=== PATIENT | male | born 1950 | race Two or more races ===

== ENCOUNTER 2021-11-19 06:50 | Inpatient (IN) | payer OTHER ==
[~2021-11-19] VITALS: Ht 172.7 cm; Wt 85.7 kg
[2021-11-19] VITALS (12 sets, daily range): BP systolic 103–126; BP diastolic 73–83
[~2021-11-19 06:50] MED LIST: AMLO10TA80 PO; INDO50CA99 PO; LINA5TAB PO; METO-539 PO; PRED10TA PO; SILD100T69 PO; VALS1TAB80 PO
[2021-11-19] MEDS ORDERED: ETOMIDATE 2MG/ML 10ML VIAL IV ONE (08:08)
[2021-11-19] MEDS ORDERED: MORPHINE SULFATE 4 MG/ML CPJ (NOT FOR IM USE) IV ONE (09:00)
[2021-11-19] MEDS ORDERED: LORAZEPAM 1MG TABLET PO ONE (09:00)
[2021-11-19] MEDS ORDERED: SODIUM BICARBONATE 8.4% 1 MEQ/ML 50ML SYR IV ONE (09:41)
[2021-11-19] MEDS ORDERED: ADENOSINE 3 MG/ML 2ML VIAL IV ONE (09:41)
[2021-11-19] MEDS ORDERED: EPINEPHRINE 0.1MG/ML (1:10,000) 10ML SYR ONE (09:41)
[2021-11-19 09:49] LABS: HEMOGLOBIN. 9.6 g/dL (14.0-18.0); MEAN CORPUSCULAR HEMOGLOBIN 25.5 pg (28.0-32.0); MEAN CORPUSCULAR VOLUME 77.2 fL (80.0-94.0); MEAN PLATELET VOLUME 8.6 fl (7.4-10.4); PLATELET 364 x1000/uL (130-400); RED BLOOD CELL COUNT 3.76 mill/uL (4.7-6.1); RED CELL DISTRIBUTION WIDTH 19.6 % (11.6-14.6)
[2021-11-19 10:48] LABS: PLATELET ESTIMATE NORMAL
[2021-11-19 10:58] LABS: PROTHROMBIN TIME 11.2 sec (9.6-11.0)
[2021-11-19] MEDS ORDERED: MORPHINE SULFATE 4 MG/ML CPJ (NOT FOR IM USE) IV STA (13:03)
[2021-11-19 13:11] LABS: CHLORIDE 111 mEq/L (98-107)
[2021-11-19] MEDS ORDERED: SODIUM CHLORIDE 0.9% 1,000 ML IV ONE (13:15)
[2021-11-19] MEDS ORDERED: ACETAMINOPHEN 325MG TABLET PO PRN (14:45)
[2021-11-19] MEDS ORDERED: ONDANSETRON HCL 4MG/2ML INJ IV PRN (14:45)
[2021-11-19] MEDS ORDERED: CLONIDINE 0.1MG TABLET PO PRN (14:45)
[2021-11-19] MEDS ORDERED: DIPHENHYDRAMINE 50MG/ML VIAL IV PRN (14:45)
[2021-11-19] MEDS ORDERED: CEFTRIAXONE 1 G PREMIX 50 ML IV SCH (14:45)
[2021-11-19 16:58] LABS: TOTAL IRON BINDING CAPACITY 190 ug/dL (250-450)
[2021-11-19] MEDS ORDERED: NALOXONE HCL 0.4MG/ML VIAL IV PRN (17:45)
[2021-11-19] MEDS: SODIUM CHLORIDE 0.9% 1,000 ML IV SCH (20:30)
[2021-11-19] MEDS ORDERED: PROPOFOL 10MG/ML 100ML 100 ML IV ONE (20:30)
[2021-11-19] MEDS ORDERED: NOREPINEPHRINE 32 MG in DEXT 5% WATER 218 ML IV PRN (21:00)
[2021-11-19] MEDS ORDERED: PHENYLEPHRINE 100 MG in DEXT 5% WATER 240 ML IV PRN (21:00)
[2021-11-19] MEDS ORDERED: FENTANYL CITRATE/PF 2,500 MCG in SODIUM CHLORIDE 0.9% 200 ML IV PRN (21:00)
[2021-11-19] MEDS ORDERED: FENTANYL 2500MCG/250ML PMX 250 ML IV PRN (21:01)
[2021-11-19] MEDS ORDERED: DEXTROSE 50% WATER 50ML SYRINGE IV PRN (22:00)
[2021-11-19 22:11] LABS: BG BASE EXCESS -4.3 mmol/L (-2.0-2.0); BG CARBOXYHEMOGLOBIN 0.3 % (0.5-1.5); BG DEOXYHEMOGLOBIN 0.5 % (0.0-5.0); BG FRACTION INSPIRED OXYGEN 100; BG METHEMOGLOBIN 0.3 % (0.0-1.5); BG OXYGEN SATURATION 99.5 % (92.0-98.5); BG OXYHEMOGLOBIN 98.9 % (94.0-97.0); BG PH 7.449 (7.350-7.450); BG PO2 322.2 mmHg (75.0-100.0); BG SAMPLE SITE RIGHT BRACHIAL; BG TOTAL HEMOGLOBIN 8.5 g/dL (12.0-18.0); BG TOTAL RESPIRATORY RATE 22 b/min; BG VENT MODE VENT - AC
[2021-11-19] MEDS: PROPOFOL 10MG/ML 100ML 100 ML IV PRN ×2 (22:17→23:40)
[2021-11-19] MEDS: PANTOPRAZOLE SODIUM 40 MG/VIAL IV SCH (23:50)
[2021-11-20] VITALS (80 sets, daily range): BP systolic 96–148; BP diastolic 31–98
[2021-11-20] MEDS: BLOOD SUGAR DIAGNOSTIC STRIP TEST SCH ×4 (05:23→20:40)
[2021-11-20] MEDS: PROPOFOL 10MG/ML 100ML 100 ML IV PRN (05:25)
[2021-11-20 06:13] LABS: HEMATOCRIT. 25.8 % (42.0-52.0); HEMOGLOBIN. 8.3 g/dL (14.0-18.0); MEAN CORPUSCULAR VOLUME 78.2 fL (80.0-94.0); MEAN PLATELET VOLUME 8.3 fl (7.4-10.4); PLATELET 272 x1000/uL (130-400); RED CELL DISTRIBUTION WIDTH 18.9 % (11.6-14.6)
[2021-11-20] MEDS: INSULIN LISPRO 100 UNITS/ML SUBCUT SCH ×5 (06:30→20:41)
[2021-11-20 06:31] LABS: CHLORIDE 110 mEq/L (98-107)
[2021-11-20] MEDS: FERROUS SULFATE 325MG TABLET PO SCH ×4 (07:00→17:04)
[2021-11-20 08:32] LABS: BG BASE EXCESS -1.6 mmol/L (-2.0-2.0); BG CARBOXYHEMOGLOBIN 0.3 % (0.5-1.5); BG DEOXYHEMOGLOBIN 2.1 % (0.0-5.0); BG FRACTION INSPIRED OXYGEN 30; BG HCO3 ACT 21.6 mmol/L (22.0-26.0); BG METHEMOGLOBIN 0.2 % (0.0-1.5); BG OXYGEN SATURATION 97.9 % (92.0-98.5); BG OXYHEMOGLOBIN 97.4 % (94.0-97.0); BG PCO2 30.6 mmHg (35.0-45.0); BG PH 7.466 (7.350-7.450); BG PO2 107.5 mmHg (75.0-100.0); BG SAMPLE SITE RIGHT RADIAL; BG TOTAL HEMOGLOBIN 9.6 g/dL (12.0-18.0); BG VENT MODE VENT - AC
[2021-11-20] MEDS: DOCUSATE SODIUM 100MG CAPSULE PO SCH ×2 (09:00→17:05)
[2021-11-20 10:24] LABS: BG BASE EXCESS -2.7 mmol/L (-2.0-2.0); BG CARBOXYHEMOGLOBIN 0.3 % (0.5-1.5); BG DEOXYHEMOGLOBIN 1.8 % (0.0-5.0); BG FRACTION INSPIRED OXYGEN 30; BG HCO3 ACT 20.2 mmol/L (22.0-26.0); BG METHEMOGLOBIN 0.4 % (0.0-1.5); BG OXYGEN SATURATION 98.2 % (92.0-98.5); BG OXYHEMOGLOBIN 97.5 % (94.0-97.0); BG PCO2 28.5 mmHg (35.0-45.0); BG PH 7.468 (7.350-7.450); BG PO2 123.9 mmHg (75.0-100.0); BG SAMPLE SITE RIGHT RADIAL; BG TOTAL HEMOGLOBIN 10.2 g/dL (12.0-18.0); BG VENT MODE VENT - CPAP
[2021-11-20] MEDS: SODIUM CHLORIDE 0.9% 1,000 ML IV SCH ×2 (11:51→17:25)
[2021-11-20 14:15] LABS: PLATELET ESTIMATE NORMAL
[2021-11-20] MEDS: CEFTRIAXONE 1,000 MG in DEXTROSE 5% WATER 50 ML IV SCH (15:21)
[2021-11-20] MEDS ORDERED: CEFTRIAXONE 1,000 MG in DEXTROSE 5% WATER 50 ML IV SCH (17:00)
[2021-11-20] MEDS: PANTOPRAZOLE SODIUM 40 MG/VIAL IV SCH (20:53)
[2021-11-21] VITALS (38 sets, daily range): BP systolic 83–140; BP diastolic 43–98
[2021-11-21] MEDS: SODIUM CHLORIDE 0.9% 1,000 ML IV SCH (04:48)
[2021-11-21 05:17] LABS: MEAN CORPUSCULAR HEMOGLOBIN 25.3 pg (28.0-32.0); MEAN CORPUSCULAR VOLUME 77.3 fL (80.0-94.0); MEAN PLATELET VOLUME 9.2 fl (7.4-10.4); PLATELET 141 x1000/uL (130-400); RED BLOOD CELL COUNT 2.54 mill/uL (4.7-6.1); RED CELL DISTRIBUTION WIDTH 19.6 % (11.6-14.6)
[2021-11-21 05:30] LABS: CHLORIDE 110 mEq/L (98-107)
[2021-11-21] MEDS: ACETAMINOPHEN 325MG TABLET PO PRN (05:43)
[2021-11-21 06:15] LABS: HEMOGLOBIN. 6.4 g/dL (14.0-18.0)
[2021-11-21 06:16] LABS: HEMATOCRIT. 19.7 % (42.0-52.0)
[2021-11-21] MEDS: INSULIN LISPRO 100 UNITS/ML SUBCUT SCH ×4 (06:51→21:00)
[2021-11-21] MEDS: BLOOD SUGAR DIAGNOSTIC STRIP TEST SCH ×4 (06:51→21:00)
[2021-11-21] MEDS: FERROUS SULFATE 325MG TABLET PO SCH ×3 (06:56→16:10)
[2021-11-21 07:04] LABS: HEMATOCRIT 23.5 % (42.0-52.0); HEMOGLOBIN 7.5 g/dL (14.0-18.0); PLATELET 177 x1000/uL (130-400); RED BLOOD CELL COUNT 3.02 mill/uL (4.7-6.1); RED CELL DISTRIBUTION WIDTH 19.4 % (11.6-14.6)
[2021-11-21] MEDS ORDERED: HYDROCODONE/ACETAMINOPHEN 10/325MG TABLET PO PRN (07:30)
[2021-11-21] MEDS: DOCUSATE SODIUM 100MG CAPSULE PO SCH ×2 (08:01→16:10)
[2021-11-21] MEDS: HYDROCODONE/ACETAMINOPHEN 5/325MG TABLET PO PRN (08:03)
[2021-11-21] MEDS: MORPHINE SULFATE 4 MG/ML CPJ (NOT FOR IM USE) IV PRN ×2 (10:57→16:17)
[2021-11-21] MEDS: LACTULOSE 20G/30ML UDC PO SCH ×2 (10:57→16:09)
[2021-11-21] MEDS: CEFTRIAXONE 1,000 MG in DEXTROSE 5% WATER 50 ML IV SCH (14:17)
[2021-11-21 17:05] LABS: PLATELET ESTIMATE NORMAL
[2021-11-21] MEDS ORDERED: EPOETIN ALFA 10000UNITS/ML VIAL SUBCUT NR (21:00)
[2021-11-21] MEDS: PANTOPRAZOLE SODIUM 40 MG/VIAL IV SCH (22:04)
[2021-11-22] VITALS (13 sets, daily range): BP systolic 81–166; BP diastolic 45–109
[2021-11-22 05:21] LABS: HEMATOCRIT. 25.3 % (42.0-52.0); HEMOGLOBIN. 8.3 g/dL (14.0-18.0); MEAN CORPUSCULAR HEMOGLOBIN 25.4 pg (28.0-32.0); MEAN CORPUSCULAR VOLUME 77.5 fL (80.0-94.0); MEAN PLATELET VOLUME 9.4 fl (7.4-10.4); PLATELET 186 x1000/uL (130-400); RED BLOOD CELL COUNT 3.26 mill/uL (4.7-6.1); RED CELL DISTRIBUTION WIDTH 20.1 % (11.6-14.6)
[2021-11-22 06:30] LABS: PHOSPHORUS 3.4 mg/dL (2.5-4.9)
[2021-11-22] MEDS: INSULIN LISPRO 100 UNITS/ML SUBCUT SCH ×4 (08:00→21:00)
[2021-11-22] MEDS: BLOOD SUGAR DIAGNOSTIC STRIP TEST SCH ×4 (08:16→21:00)
[2021-11-22] MEDS: LACTULOSE 20G/30ML UDC PO SCH ×2 (08:16→16:10)
[2021-11-22] MEDS: DOCUSATE SODIUM 100MG CAPSULE PO SCH ×2 (08:16→17:52)
[2021-11-22] MEDS: FERROUS SULFATE 325MG TABLET PO SCH ×3 (08:16→17:51)
[2021-11-22] MEDS: SODIUM CHLORIDE 0.9% 1,000 ML IV SCH (08:17)
[2021-11-22] MEDS: CEFTRIAXONE 1,000 MG in DEXTROSE 5% WATER 50 ML IV SCH (14:00)
[2021-11-22 14:06] LABS: T4 FREE 1.68 ng/dL (0.76-1.46)
[2021-11-22] MEDS: HYDROCODONE/ACETAMINOPHEN 5/325MG TABLET PO PRN (16:11)
[2021-11-22] MEDS ORDERED: NA PHOS,M-B/NA PHOS,DI-BA ENEMA 118ML PR NR (18:00)
[2021-11-22] MEDS: PANTOPRAZOLE SODIUM 40 MG/VIAL IV SCH (21:00)
[2021-11-22 21:03] LABS: PLATELET ESTIMATE NORMAL
[2021-11-23] VITALS (62 sets, daily range): BP systolic 80–175; BP diastolic 39–108
[2021-11-23] MEDS: SODIUM CHLORIDE 0.9% 1,000 ML IV SCH (00:58)
[2021-11-23] MEDS: ATROPINE SULFATE 1MG/ML VIAL IV PRN ×2 (01:57→02:39)
[2021-11-23 03:25] LABS: BG DEOXYHEMOGLOBIN 8.7 % (0.0-5.0); BG FRACTION INSPIRED OXYGEN 21; BG HCO3 ACT 9.2 mmol/L (22.0-26.0); BG METHEMOGLOBIN 0.3 % (0.0-1.5); BG OXYGEN SATURATION 91.3 % (92.0-98.5); BG PCO2 15.7 mmHg (35.0-45.0); BG PH 7.384 (7.350-7.450); BG PO2 65.2 mmHg (75.0-100.0); BG SAMPLE SITE RIGHT BRACHIAL; BG VENT MODE ROOM AIR
[2021-11-23] MEDS ORDERED: SODIUM CHLORIDE 0.9% 500 ML IV ONE (04:15)
[2021-11-23] MEDS: DOPAMINE 400MG/250ML PREMIX 250 ML IV PRN ×2 (04:30→13:54)
[2021-11-23 06:26] LABS: HEMATOCRIT. 26.9 % (42.0-52.0); HEMOGLOBIN. 8.5 g/dL (14.0-18.0); MEAN CORPUSCULAR HEMOGLOBIN 25.1 pg (28.0-32.0); MEAN CORPUSCULAR VOLUME 79.5 fL (80.0-94.0); MEAN PLATELET VOLUME 9.6 fl (7.4-10.4); PLATELET 218 x1000/uL (130-400); RED BLOOD CELL COUNT 3.38 mill/uL (4.7-6.1); RED CELL DISTRIBUTION WIDTH 19.6 % (11.6-14.6)
[2021-11-23 06:27] LABS: BG BASE EXCESS -19.6 mmol/L (-2.0-2.0); BG CARBOXYHEMOGLOBIN 0.3 % (0.5-1.5); BG DEOXYHEMOGLOBIN 2.5 % (0.0-5.0); BG FRACTION INSPIRED OXYGEN 100; BG HCO3 ACT 6.8 mmol/L (22.0-26.0); BG METHEMOGLOBIN 0.2 % (0.0-1.5); BG OXYGEN SATURATION 97.5 % (92.0-98.5); BG PCO2 18.6 mmHg (35.0-45.0); BG PH 7.181 (7.350-7.450); BG PO2 117.3 mmHg (75.0-100.0); BG SAMPLE SITE RIGHT BRACHIAL; BG TOTAL HEMOGLOBIN 9.8 g/dL (12.0-18.0); BG VENT MODE MASK - NRB
[2021-11-23 06:45] LABS: PHOSPHORUS 5.9 mg/dL (2.5-4.9)
[2021-11-23 07:01] LABS: INR 1.4; PROTHROMBIN TIME 14.9 sec (9.6-11.0)
[2021-11-23] MEDS ORDERED: CALCIUM CHLORIDE 1GM/10ML SYR IV NR (07:30)
[2021-11-23] MEDS ORDERED: INSULIN REGULAR (HUMULIN R) 300UNITS/3ML VIAL IV NR (07:30)
[2021-11-23] MEDS ORDERED: DEXTROSE 50% WATER 50ML SYRINGE IV NR (07:30)
[2021-11-23] MEDS ORDERED: SODIUM BICARBONATE 8.4% 1 MEQ/ML 50ML SYR IV NR ×2 (07:30→09:45)
[2021-11-23] MEDS ORDERED: LIDOCAINE HCL 1% 10 MG/ML 10ML VIAL ONE ×3 (07:30→09:42)
[2021-11-23] MEDS: BLOOD SUGAR DIAGNOSTIC STRIP TEST SCH ×4 (07:37→23:19)
[2021-11-23] MEDS ORDERED: ETOMIDATE 2MG/ML 10ML VIAL IV ONE (07:49)
[2021-11-23] MEDS ORDERED: SODIUM CHLORIDE 0.9% 10ML VIAL ONE (07:49)
[2021-11-23] MEDS ORDERED: VECURONIUM BROMIDE 10 MG/VIAL IV ONE (07:49)
[2021-11-23] MEDS: FERROUS SULFATE 325MG TABLET PO SCH ×3 (08:20→17:40)
[2021-11-23] MEDS: INSULIN LISPRO 100 UNITS/ML SUBCUT SCH ×4 (08:20→23:22)
[2021-11-23] MEDS: DOCUSATE SODIUM 100MG CAPSULE PO SCH ×2 (09:00→16:34)
[2021-11-23] MEDS: LACTULOSE 20G/30ML UDC PO SCH ×2 (09:00→16:34)
[2021-11-23 09:02] LABS: PLATELET ESTIMATE NORMAL
[2021-11-23] MEDS: SODIUM BICARBONATE 150 MEQ in DEXTROSE 5% WATER 1,000 ML IV SCH (09:39)
[2021-11-23] MEDS: FENTANYL 2500MCG/250ML PMX 250 ML IV PRN (09:40)
[2021-11-23 10:10] LABS: BG BASE EXCESS -17.8 mmol/L (-2.0-2.0); BG CARBOXYHEMOGLOBIN 0.2 % (0.5-1.5); BG DEOXYHEMOGLOBIN 4.4 % (0.0-5.0); BG FRACTION INSPIRED OXYGEN 100; BG HCO3 ACT 10.9 mmol/L (22.0-26.0); BG METHEMOGLOBIN 1.3 % (0.0-1.5); BG OXYGEN SATURATION 95.5 % (92.0-98.5); BG OXYHEMOGLOBIN 94.1 % (94.0-97.0); BG PCO2 36.7 mmHg (35.0-45.0); BG PH 7.092 (7.350-7.450); BG PO2 114.1 mmHg (75.0-100.0); BG SAMPLE SITE RIGHT RADIAL; BG TOTAL HEMOGLOBIN 10.4 g/dL (12.0-18.0); BG VENT MODE VENT - AC/VC
[2021-11-23] MEDS: MIDAZOLAM 100MG/100ML PMX 100 ML IV PRN (11:00)
[2021-11-23] MEDS ORDERED: ALBUMIN HUMAN 12.5GM/50ML (25%) IV NR (12:15)
[2021-11-23] MEDS ORDERED: ALBUMIN HUMAN 25GM/100ML (25%) IV NR (12:30)
[2021-11-23] MEDS: CEFTRIAXONE 1,000 MG in DEXTROSE 5% WATER 50 ML IV SCH (13:06)
[2021-11-23 13:56] LABS: HEPATITIS B SURFACE ANTIGEN NEGATIVE
[2021-11-23 15:10] LABS: BG BASE EXCESS 2.5 mmol/L (-2.0-2.0); BG DEOXYHEMOGLOBIN 0.3 % (0.0-5.0); BG FRACTION INSPIRED OXYGEN 100; BG METHEMOGLOBIN 0.3 % (0.0-1.5); BG OXYGEN SATURATION 99.7 % (92.0-98.5); BG OXYHEMOGLOBIN 99.4 % (94.0-97.0); BG PCO2 25.7 mmHg (35.0-45.0); BG PH 7.588 (7.350-7.450); BG PO2 524.7 mmHg (75.0-100.0); BG SAMPLE SITE RIGHT BRACHIAL; BG VENT MODE VENT - AC
[2021-11-23] MEDS: PHENYLEPHRINE 50 MG in DEXT 5% WATER 245 ML IV PRN ×2 (17:38→22:48)
[2021-11-23] MEDS: PANTOPRAZOLE SODIUM 40 MG/VIAL IV SCH (21:11)
[2021-11-24] VITALS (73 sets, daily range): BP systolic 93–146; BP diastolic 63–98
[2021-11-24] MEDS: SODIUM BICARBONATE 150 MEQ in DEXTROSE 5% WATER 1,000 ML IV SCH (01:12)
[2021-11-24] MEDS: BLOOD SUGAR DIAGNOSTIC STRIP TEST SCH ×4 (05:32→23:31)
[2021-11-24] MEDS: INSULIN LISPRO 100 UNITS/ML SUBCUT SCH ×4 (05:32→23:32)
[2021-11-24] MEDS: PHENYLEPHRINE 50 MG in DEXT 5% WATER 245 ML IV PRN (05:33)
[2021-11-24 06:15] LABS: HEMATOCRIT. 25.3 % (42.0-52.0); HEMOGLOBIN. 8.4 g/dL (14.0-18.0); MEAN CORPUSCULAR HEMOGLOBIN 25.3 pg (28.0-32.0); MEAN CORPUSCULAR VOLUME 76.4 fL (80.0-94.0); MEAN PLATELET VOLUME 10.2 fl (7.4-10.4); PLATELET 199 x1000/uL (130-400); RED BLOOD CELL COUNT 3.32 mill/uL (4.7-6.1); RED CELL DISTRIBUTION WIDTH 20.3 % (11.6-14.6)
[2021-11-24 06:24] LABS: INR 1.8; PROTHROMBIN TIME 18.7 sec (9.6-11.0)
[2021-11-24 07:19] LABS: PHOSPHORUS 4.2 mg/dL (2.5-4.9)
[2021-11-24] MEDS: FERROUS SULFATE 325MG TABLET PO SCH ×3 (08:20→17:28)
[2021-11-24 08:25] LABS: BG BASE EXCESS 4.5 mmol/L (-2.0-2.0); BG CARBOXYHEMOGLOBIN 0.1 % (0.5-1.5); BG DEOXYHEMOGLOBIN 7.1 % (0.0-5.0); BG FRACTION INSPIRED OXYGEN 40; BG HCO3 ACT 27.8 mmol/L (22.0-26.0); BG METHEMOGLOBIN 0.3 % (0.0-1.5); BG OXYGEN SATURATION 92.9 % (92.0-98.5); BG OXYHEMOGLOBIN 92.5 % (94.0-97.0); BG PCO2 36.6 mmHg (35.0-45.0); BG PH 7.499 (7.350-7.450); BG PO2 67.1 mmHg (75.0-100.0); BG SAMPLE SITE RIGHT RADIAL; BG TOTAL HEMOGLOBIN 10.7 g/dL (12.0-18.0); BG VENT MODE VENT - AC
[2021-11-24] MEDS: DOCUSATE SODIUM 100MG CAPSULE PO SCH ×2 (09:00→17:29)
[2021-11-24] MEDS: LACTULOSE 20G/30ML UDC PO SCH ×2 (09:00→17:29)
[2021-11-24] MEDS: DEXT 5%/0.9% NACL 1,000 ML IV SCH (11:02)
[2021-11-24] MEDS: CEFTRIAXONE 1,000 MG in DEXTROSE 5% WATER 50 ML IV SCH (15:18)
[2021-11-24 17:13] LABS: NUCLEATED RED BLOOD CELLS 2 /100 WBC; PLATELET ESTIMATE NORMAL
[2021-11-24 20:07] LABS: HEMATOCRIT 22.6 % (42.0-52.0); HEMOGLOBIN 7.6 g/dL (14.0-18.0)
[2021-11-24 20:26] LABS: INR 1.7; PROTHROMBIN TIME 17.6 sec (9.6-11.0)
[2021-11-24] MEDS: IPRATROPIUM/ALBUTEROL 0.5-3(2.5)MG/3ML NEB HHN PRN (20:43)
[2021-11-24] MEDS: PANTOPRAZOLE SODIUM 40 MG/VIAL IV SCH (21:24)
[2021-11-25] VITALS (47 sets, daily range): BP systolic 115–175; BP diastolic 70–127
[2021-11-25] MEDS: DEXT 5%/0.9% NACL 1,000 ML IV SCH (00:03)
[2021-11-25] MEDS: MIDAZOLAM 100MG/100ML PMX 100 ML IV PRN (03:59)
[2021-11-25] MEDS: INSULIN LISPRO 100 UNITS/ML SUBCUT SCH ×3 (06:00→18:00)
[2021-11-25 06:42] LABS: HEMATOCRIT. 21.7 % (42.0-52.0); HEMOGLOBIN. 7.5 g/dL (14.0-18.0); MEAN CORPUSCULAR HEMOGLOBIN 26.2 pg (28.0-32.0); MEAN CORPUSCULAR VOLUME 75.4 fL (80.0-94.0); MEAN PLATELET VOLUME 10.1 fl (7.4-10.4); PLATELET 138 x1000/uL (130-400); RED BLOOD CELL COUNT 2.87 mill/uL (4.7-6.1)
[2021-11-25] MEDS: BLOOD SUGAR DIAGNOSTIC STRIP TEST SCH ×3 (06:44→18:37)
[2021-11-25 06:53] LABS: CHLORIDE 106 mEq/L (98-107)
[2021-11-25] MEDS: DOCUSATE SODIUM 100MG CAPSULE PO SCH ×2 (10:06→18:37)
[2021-11-25] MEDS: LACTULOSE 20G/30ML UDC PO SCH ×2 (10:06→18:37)
[2021-11-25] MEDS: FERROUS SULFATE 325MG TABLET PO SCH ×2 (10:07→18:36)
[2021-11-25] MEDS: KCL 20MEQ/100ML PREMIX 100 ML IV SCH ×2 (10:55→13:00)
[2021-11-25] MEDS: DEXT 5%/0.2% NACL 1,000 ML IV SCH ×2 (10:55→23:44)
[2021-11-25 13:20] LABS: PLATELET ESTIMATE NORMAL
[2021-11-25 16:03] LABS: AMYLASE 371 IU/L (25-115); CREATINE KINASE 55 IU/L (39-308)
[2021-11-25] MEDS: PANTOPRAZOLE SODIUM 40 MG/VIAL IV SCH (21:44)
[2021-11-26] VITALS (71 sets, daily range): BP systolic 95–159; BP diastolic 62–105
[2021-11-26] MEDS: BLOOD SUGAR DIAGNOSTIC STRIP TEST SCH ×4 (06:00→17:41)
[2021-11-26] MEDS: INSULIN LISPRO 100 UNITS/ML SUBCUT SCH ×4 (06:00→18:00)
[2021-11-26 06:47] LABS: BASOPHILS % 0.2 % (0.0-2.0); EOSINOPHILS % 0.4 % (0.0-5.0); HEMATOCRIT. 23.8 % (42.0-52.0); HEMOGLOBIN. 7.9 g/dL (14.0-18.0); LYMPHOCYTES % 9.7 % (20.0-50.0); MEAN CORPUSCULAR HEMOGLOBIN 25.2 pg (28.0-32.0); MEAN PLATELET VOLUME 10.5 fl (7.4-10.4); MONOCYTES % 3.2 % (2.0-8.0); NEUTROPHILS % 86.5 % (40.0-76.0); PLATELET 164 x1000/uL (130-400); RED BLOOD CELL COUNT 3.13 mill/uL (4.7-6.1); RED CELL DISTRIBUTION WIDTH 20.9 % (11.6-14.6)
[2021-11-26 06:51] LABS: CHLORIDE 106 mEq/L (98-107)
[2021-11-26 07:11] LABS: PHOSPHORUS 2.9 mg/dL (2.5-4.9)
[2021-11-26] MEDS: IPRATROPIUM/ALBUTEROL 0.5-3(2.5)MG/3ML NEB HHN PRN ×3 (08:54→16:26)
[2021-11-26] MEDS: LACTULOSE 20G/30ML UDC PO SCH ×2 (08:58→17:40)
[2021-11-26] MEDS: DOCUSATE SODIUM 100MG CAPSULE PO SCH ×2 (08:58→17:40)
[2021-11-26] MEDS: FENTANYL 2500MCG/250ML PMX 250 ML IV PRN (08:59)
[2021-11-26] MEDS: MIDAZOLAM 100MG/100ML PMX 100 ML IV PRN (09:00)
[2021-11-26 10:26] LABS: BG BASE EXCESS 3.6 mmol/L (-2.0-2.0); BG CARBOXYHEMOGLOBIN 0.9 % (0.5-1.5); BG DEOXYHEMOGLOBIN 4.5 % (0.0-5.0); BG FRACTION INSPIRED OXYGEN 30; BG HCO3 ACT 27.6 mmol/L (22.0-26.0); BG METHEMOGLOBIN 0.3 % (0.0-1.5); BG OXYGEN SATURATION 95.4 % (92.0-98.5); BG OXYHEMOGLOBIN 94.3 % (94.0-97.0); BG PCO2 39.6 mmHg (35.0-45.0); BG PH 7.461 (7.350-7.450); BG PO2 76.4 mmHg (75.0-100.0); BG SAMPLE SITE RIGHT RADIAL; BG TOTAL HEMOGLOBIN 10.8 g/dL (12.0-18.0); BG VENT MODE VENT - AC
[2021-11-26] MEDS: MEROPENEM 1,000 MG in SODIUM CHLORIDE 0.9% 100 ML IV SCH (18:29)
[2021-11-26] MEDS: PANTOPRAZOLE SODIUM 40 MG/VIAL IV SCH (22:07)
[2021-11-27] VITALS (78 sets, daily range): BP systolic 110–158; BP diastolic 67–103
[2021-11-27] MEDS: DEXT 5%/0.2% NACL 1,000 ML IV SCH (00:15)
[2021-11-27] MEDS: INSULIN LISPRO 100 UNITS/ML SUBCUT SCH ×5 (06:00→23:25)
[2021-11-27 06:01] LABS: HEMOGLOBIN. 7.7 g/dL (14.0-18.0); MEAN CORPUSCULAR HEMOGLOBIN 25.5 pg (28.0-32.0); MEAN CORPUSCULAR VOLUME 76.6 fL (80.0-94.0); MEAN PLATELET VOLUME 9.9 fl (7.4-10.4); PLATELET 172 x1000/uL (130-400); RED CELL DISTRIBUTION WIDTH 21.2 % (11.6-14.6)
[2021-11-27] MEDS: BLOOD SUGAR DIAGNOSTIC STRIP TEST SCH ×5 (06:32→23:25)
[2021-11-27] MEDS: LACTULOSE 20G/30ML UDC PO SCH ×2 (08:26→17:55)
[2021-11-27] MEDS: DOCUSATE SODIUM 100MG CAPSULE PO SCH (08:26)
[2021-11-27 10:53] LABS: NUCLEATED RED BLOOD CELLS 1 /100 WBC; PLATELET ESTIMATE NORMAL
[2021-11-27] MEDS: FERROUS SULFATE 325MG TABLET PO SCH (12:53)
[2021-11-27] MEDS: DOCUSATE SODIUM SUGAR FREE 100MG/10ML UDC PO SCH (17:55)
[2021-11-27] MEDS: MEROPENEM 1,000 MG in SODIUM CHLORIDE 0.9% 100 ML IV SCH (17:55)
[2021-11-27] MEDS: IPRATROPIUM/ALBUTEROL 0.5-3(2.5)MG/3ML NEB HHN SCH (20:10)
[2021-11-27] MEDS: PANTOPRAZOLE SODIUM 40 MG/VIAL IV SCH (21:26)
[2021-11-28] VITALS (53 sets, daily range): BP systolic 113–144; BP diastolic 68–104
[2021-11-28] MEDS: IPRATROPIUM/ALBUTEROL 0.5-3(2.5)MG/3ML NEB HHN SCH ×4 (02:13→20:24)
[2021-11-28] MEDS: INSULIN LISPRO 100 UNITS/ML SUBCUT SCH ×4 (05:33→23:37)
[2021-11-28] MEDS: BLOOD SUGAR DIAGNOSTIC STRIP TEST SCH ×4 (05:33→23:38)
[2021-11-28] MEDS: DOCUSATE SODIUM SUGAR FREE 100MG/10ML UDC PO SCH ×2 (09:00→17:00)
[2021-11-28] MEDS: LACTULOSE 20G/30ML UDC PO SCH ×2 (09:00→17:00)
[2021-11-28 09:25] LABS: BG BASE EXCESS 3.1 mmol/L (-2.0-2.0); BG CARBOXYHEMOGLOBIN 0.4 % (0.5-1.5); BG DEOXYHEMOGLOBIN 3.2 % (0.0-5.0); BG FRACTION INSPIRED OXYGEN 28; BG HCO3 ACT 26.4 mmol/L (22.0-26.0); BG METHEMOGLOBIN 0.3 % (0.0-1.5); BG OXYGEN SATURATION 96.8 % (92.0-98.5); BG OXYHEMOGLOBIN 96.1 % (94.0-97.0); BG PCO2 34.6 mmHg (35.0-45.0); BG PO2 81.4 mmHg (75.0-100.0); BG SAMPLE SITE RIGHT RADIAL; BG TOTAL HEMOGLOBIN 8.5 g/dL (12.0-18.0); BG VENT MODE VENT - AC
[2021-11-28 09:43] LABS: HEMATOCRIT. 25.7 % (42.0-52.0); HEMOGLOBIN. 8.5 g/dL (14.0-18.0); MEAN CORPUSCULAR HEMOGLOBIN 25.4 pg (28.0-32.0); MEAN CORPUSCULAR VOLUME 77.1 fL (80.0-94.0); PLATELET 220 x1000/uL (130-400); RED BLOOD CELL COUNT 3.34 mill/uL (4.7-6.1); RED CELL DISTRIBUTION WIDTH 21.2 % (11.6-14.6)
[2021-11-28] MEDS: DEXT 5%/0.2% NACL 1,000 ML IV SCH (10:00)
[2021-11-28 10:24] LABS: PLATELET ESTIMATE NORMAL
[2021-11-28] MEDS: FERROUS SULFATE 325MG TABLET PO SCH (13:11)
[2021-11-28] MEDS: MEROPENEM 1,000 MG in SODIUM CHLORIDE 0.9% 100 ML IV SCH (18:00)
[2021-11-28] MEDS: PANTOPRAZOLE SODIUM 40 MG/VIAL IV SCH (21:32)
[2021-11-29] VITALS (46 sets, daily range): BP systolic 100–165; BP diastolic 58–111
[2021-11-29] MEDS: IPRATROPIUM/ALBUTEROL 0.5-3(2.5)MG/3ML NEB HHN SCH ×4 (00:29→20:32)
[2021-11-29 02:33] LABS: CLARITY URINE TURBID (CLEAR); COLOR URINE DARK YELLOW (YELLOW); KETONES URINE NEGATIVE (NEGATIVE); LEUKOCYTE ESTERASE URINE 3+ (NEGATIVE); NITRITE URINE POSITIVE (NEGATIVE); OCCULT BLOOD URINE 3+ (NEGATIVE); PH URINE 6.5 (4.5-8.0); PROTEIN URINE 3+ (NEGATIVE); SPECIFIC GRAVITY URINE 1.015 (1.005-1.030)
[2021-11-29 05:24] LABS: HEMATOCRIT. 24.1 % (42.0-52.0); HEMOGLOBIN. 7.8 g/dL (14.0-18.0); MEAN CORPUSCULAR HEMOGLOBIN 25.3 pg (28.0-32.0); MEAN CORPUSCULAR VOLUME 78.1 fL (80.0-94.0); PLATELET 217 x1000/uL (130-400); RED BLOOD CELL COUNT 3.08 mill/uL (4.7-6.1)
[2021-11-29 05:40] LABS: PHOSPHORUS 2.6 mg/dL (2.5-4.9)
[2021-11-29] MEDS: INSULIN LISPRO 100 UNITS/ML SUBCUT SCH ×4 (06:00→23:35)
[2021-11-29] MEDS: BLOOD SUGAR DIAGNOSTIC STRIP TEST SCH ×4 (06:20→23:34)
[2021-11-29 06:24] LABS: PLATELET ESTIMATE NORMAL
[2021-11-29 08:40] LABS: BG BASE EXCESS 4.3 mmol/L (-2.0-2.0); BG CARBOXYHEMOGLOBIN 0.8 % (0.5-1.5); BG DEOXYHEMOGLOBIN 3.9 % (0.0-5.0); BG FRACTION INSPIRED OXYGEN 28; BG HCO3 ACT 27.5 mmol/L (22.0-26.0); BG METHEMOGLOBIN 0.4 % (0.0-1.5); BG OXYGEN SATURATION 96.1 % (92.0-98.5); BG OXYHEMOGLOBIN 94.9 % (94.0-97.0); BG PCO2 34.2 mmHg (35.0-45.0); BG PH 7.523 (7.350-7.450); BG PO2 74.8 mmHg (75.0-100.0); BG SAMPLE SITE RIGHT RADIAL; BG TOTAL HEMOGLOBIN 6.5 g/dL (12.0-18.0); BG VENT MODE VENT - AC
[2021-11-29] MEDS: ACETAMINOPHEN 325MG TABLET PO PRN (08:42)
[2021-11-29] MEDS: DOCUSATE SODIUM SUGAR FREE 100MG/10ML UDC PO SCH ×2 (08:43→17:12)
[2021-11-29] MEDS: LACTULOSE 20G/30ML UDC PO SCH ×2 (08:43→17:12)
[2021-11-29] MEDS: FERROUS SULFATE 325MG TABLET PO SCH (12:18)
[2021-11-29] MEDS: MEROPENEM 1,000 MG in SODIUM CHLORIDE 0.9% 100 ML IV SCH (17:12)
[2021-11-29] MEDS: FENTANYL 2500MCG/250ML PMX 250 ML IV PRN (18:25)
[2021-11-29] MEDS: PANTOPRAZOLE SODIUM 40 MG/VIAL IV SCH (21:05)
[2021-11-30] VITALS (57 sets, daily range): BP systolic 112–160; BP diastolic 65–129
[2021-11-30] MEDS: IPRATROPIUM/ALBUTEROL 0.5-3(2.5)MG/3ML NEB HHN SCH ×4 (02:38→20:31)
[2021-11-30 05:34] LABS: HEMATOCRIT. 21.6 % (42.0-52.0); HEMOGLOBIN. 7.1 g/dL (14.0-18.0); MEAN CORPUSCULAR HEMOGLOBIN 25.5 pg (28.0-32.0); MEAN CORPUSCULAR VOLUME 77.4 fL (80.0-94.0); MEAN PLATELET VOLUME 9.7 fl (7.4-10.4); PLATELET 194 x1000/uL (130-400); RED BLOOD CELL COUNT 2.79 mill/uL (4.7-6.1); RED CELL DISTRIBUTION WIDTH 22.3 % (11.6-14.6)
[2021-11-30 05:40] LABS: CHLORIDE 106 mEq/L (98-107)
[2021-11-30 05:53] LABS: PHOSPHORUS 2.8 mg/dL (2.5-4.9)
[2021-11-30] MEDS: ACETAMINOPHEN 325MG TABLET PO PRN (06:05)
[2021-11-30] MEDS: INSULIN LISPRO 100 UNITS/ML SUBCUT SCH ×3 (06:06→18:49)
[2021-11-30] MEDS: BLOOD SUGAR DIAGNOSTIC STRIP TEST SCH ×3 (06:22→18:32)
[2021-11-30 08:38] LABS: PLATELET ESTIMATE NORMAL
[2021-11-30] MEDS: DOCUSATE SODIUM SUGAR FREE 100MG/10ML UDC PO SCH ×2 (08:49→18:32)
[2021-11-30] MEDS: LACTULOSE 20G/30ML UDC PO SCH ×2 (08:49→18:32)
[2021-11-30 08:53] LABS: BG BASE EXCESS 0.3 mmol/L (-2.0-2.0); BG CARBOXYHEMOGLOBIN 0.4 % (0.5-1.5); BG DEOXYHEMOGLOBIN 4.5 % (0.0-5.0); BG FRACTION INSPIRED OXYGEN 28; BG HCO3 ACT 23.4 mmol/L (22.0-26.0); BG METHEMOGLOBIN 0.1 % (0.0-1.5); BG OXYGEN SATURATION 95.5 % (92.0-98.5); BG PCO2 31.5 mmHg (35.0-45.0); BG PEEP (cmH2O) 0 cmH2O; BG PH 7.489 (7.350-7.450); BG PO2 79.2 mmHg (75.0-100.0); BG SAMPLE SITE RIGHT RADIAL; BG TOTAL HEMOGLOBIN 8.1 g/dL (12.0-18.0); BG VENT MODE VENT - APRV
[2021-11-30] MEDS: FERROUS SULFATE 325MG TABLET PO SCH (12:19)
[2021-11-30] MEDS ORDERED: POTASSIUM CHLORIDE 20MEQ/PACKET PO NR (17:15)
[2021-11-30] MEDS ORDERED: VANCOMYCIN 1,750 MG in DEXT 5% WATER 500 ML IV NR (17:30)
[2021-11-30] MEDS: PANTOPRAZOLE SODIUM 40 MG/VIAL IV SCH (20:18)
[2021-11-30] MEDS: MEROPENEM 1,000 MG in SODIUM CHLORIDE 0.9% 100 ML IV SCH (21:48)
[2021-12-01] VITALS (67 sets, daily range): BP systolic 114–156; BP diastolic 65–103
[2021-12-01] MEDS: FENTANYL 2500MCG/250ML PMX 250 ML IV PRN (00:04)
[2021-12-01] MEDS: INSULIN LISPRO 100 UNITS/ML SUBCUT SCH ×4 (00:05→17:56)
[2021-12-01] MEDS: IPRATROPIUM/ALBUTEROL 0.5-3(2.5)MG/3ML NEB HHN SCH ×4 (01:56→20:58)
[2021-12-01 05:53] LABS: HEMATOCRIT. 25.5 % (42.0-52.0); HEMOGLOBIN. 8.4 g/dL (14.0-18.0); MEAN CORPUSCULAR HEMOGLOBIN 26.4 pg (28.0-32.0); MEAN CORPUSCULAR VOLUME 80.4 fL (80.0-94.0); MEAN PLATELET VOLUME 10.2 fl (7.4-10.4); PLATELET 199 x1000/uL (130-400); RED BLOOD CELL COUNT 3.17 mill/uL (4.7-6.1); RED CELL DISTRIBUTION WIDTH 21.8 % (11.6-14.6)
[2021-12-01] MEDS: BLOOD SUGAR DIAGNOSTIC STRIP TEST SCH ×4 (06:05→17:57)
[2021-12-01 06:07] LABS: PHOSPHORUS 2.9 mg/dL (2.5-4.9)
[2021-12-01 07:39] LABS: BG CARBOXYHEMOGLOBIN 0.2 % (0.5-1.5); BG DEOXYHEMOGLOBIN 1.3 % (0.0-5.0); BG FRACTION INSPIRED OXYGEN 40; BG HCO3 ACT 27.6 mmol/L (22.0-26.0); BG METHEMOGLOBIN 0.5 % (0.0-1.5); BG OXYGEN SATURATION 98.7 % (92.0-98.5); BG PCO2 37.4 mmHg (35.0-45.0); BG PH 7.486 (7.350-7.450); BG PO2 139.4 mmHg (75.0-100.0); BG SAMPLE SITE RIGHT RADIAL; BG TOTAL HEMOGLOBIN 8.8 g/dL (12.0-18.0); BG VENT MODE VENT - SIMV
[2021-12-01] MEDS: DOCUSATE SODIUM SUGAR FREE 100MG/10ML UDC PO SCH ×2 (09:26→18:27)
[2021-12-01] MEDS: LACTULOSE 20G/30ML UDC PO SCH ×2 (09:26→18:27)
[2021-12-01 10:03] LABS: PLATELET ESTIMATE NORMAL
[2021-12-01 11:34] LABS: BG BASE EXCESS 3.5 mmol/L (-2.0-2.0); BG CARBOXYHEMOGLOBIN 0.5 % (0.5-1.5); BG DEOXYHEMOGLOBIN 1.8 % (0.0-5.0); BG FRACTION INSPIRED OXYGEN 40; BG HCO3 ACT 26.8 mmol/L (22.0-26.0); BG METHEMOGLOBIN 0.5 % (0.0-1.5); BG OXYGEN SATURATION 98.2 % (92.0-98.5); BG OXYHEMOGLOBIN 97.2 % (94.0-97.0); BG PCO2 35.3 mmHg (35.0-45.0); BG PH 7.499 (7.350-7.450); BG PO2 110.2 mmHg (75.0-100.0); BG SAMPLE SITE RIGHT RADIAL; BG TOTAL HEMOGLOBIN 8.6 g/dL (12.0-18.0); BG VENT MODE VENT - CPAP
[2021-12-01] MEDS: FERROUS SULFATE 325MG TABLET PO SCH (12:06)
[2021-12-01] MEDS: LINEZOLID 600 MG PREMIX 300 ML IV SCH (14:41)
[2021-12-01] MEDS: MEROPENEM 1,000 MG in SODIUM CHLORIDE 0.9% 100 ML IV SCH (18:27)
[2021-12-01] MEDS: ACETAMINOPHEN 325MG TABLET PO PRN (20:38)
[2021-12-01] MEDS: PANTOPRAZOLE SODIUM 40 MG/VIAL IV SCH (20:38)
[2021-12-02] VITALS (68 sets, daily range): BP systolic 121–156; BP diastolic 58–88
[2021-12-02] MEDS: BLOOD SUGAR DIAGNOSTIC STRIP TEST SCH ×5 (00:19→18:00)
[2021-12-02] MEDS: INSULIN LISPRO 100 UNITS/ML SUBCUT SCH ×4 (00:23→17:22)
[2021-12-02] MEDS: IPRATROPIUM/ALBUTEROL 0.5-3(2.5)MG/3ML NEB HHN SCH ×4 (01:48→20:55)
[2021-12-02] MEDS: LINEZOLID 600 MG PREMIX 300 ML IV SCH ×2 (05:28→17:21)
[2021-12-02 05:59] LABS: HEMATOCRIT. 24.6 % (42.0-52.0); HEMOGLOBIN. 8.1 g/dL (14.0-18.0); MEAN CORPUSCULAR HEMOGLOBIN 26.3 pg (28.0-32.0); MEAN CORPUSCULAR VOLUME 79.4 fL (80.0-94.0); MEAN PLATELET VOLUME 10.4 fl (7.4-10.4); PLATELET 217 x1000/uL (130-400); RED BLOOD CELL COUNT 3.09 mill/uL (4.7-6.1); RED CELL DISTRIBUTION WIDTH 21.7 % (11.6-14.6)
[2021-12-02 06:15] LABS: PHOSPHORUS 2.4 mg/dL (2.5-4.9)
[2021-12-02 06:57] LABS: PLATELET ESTIMATE NORMAL
[2021-12-02] MEDS: LACTULOSE 20G/30ML UDC PO SCH ×2 (09:00→17:00)
[2021-12-02] MEDS: DOCUSATE SODIUM SUGAR FREE 100MG/10ML UDC PO SCH ×2 (09:00→17:00)
[2021-12-02] MEDS: FERROUS SULFATE 325MG TABLET PO SCH (13:00)
[2021-12-02] MEDS: MEROPENEM 1,000 MG in SODIUM CHLORIDE 0.9% 100 ML IV SCH (17:21)
[2021-12-02] MEDS: PANTOPRAZOLE SODIUM 40 MG/VIAL IV SCH (21:14)
[2021-12-02] MEDS: ACETAMINOPHEN 325MG TABLET PO PRN (23:08)
[2021-12-03] VITALS (29 sets, daily range): BP systolic 127–157; BP diastolic 45–112
[2021-12-03] MEDS: IPRATROPIUM/ALBUTEROL 0.5-3(2.5)MG/3ML NEB HHN SCH ×3 (01:05→20:41)
[2021-12-03] MEDS: LINEZOLID 600 MG PREMIX 300 ML IV SCH ×2 (06:00→19:20)
[2021-12-03 06:56] LABS: HEMATOCRIT. 23.9 % (42.0-52.0); HEMOGLOBIN. 7.9 g/dL (14.0-18.0); MEAN CORPUSCULAR HEMOGLOBIN 26.2 pg (28.0-32.0); MEAN CORPUSCULAR VOLUME 79.3 fL (80.0-94.0); MEAN PLATELET VOLUME 9.9 fl (7.4-10.4); PLATELET 250 x1000/uL (130-400); RED BLOOD CELL COUNT 3.02 mill/uL (4.7-6.1); RED CELL DISTRIBUTION WIDTH 21.9 % (11.6-14.6)
[2021-12-03 07:10] LABS: PHOSPHORUS 2.4 mg/dL (2.5-4.9)
[2021-12-03] MEDS: BLOOD SUGAR DIAGNOSTIC STRIP TEST SCH ×4 (07:53→21:47)
[2021-12-03] MEDS: INSULIN LISPRO 100 UNITS/ML SUBCUT SCH ×4 (07:54→21:00)
[2021-12-03] MEDS: LACTULOSE 20G/30ML UDC PO SCH ×2 (09:00→17:00)
[2021-12-03] MEDS: DOCUSATE SODIUM SUGAR FREE 100MG/10ML UDC PO SCH ×2 (09:00→17:00)
[2021-12-03 10:59] LABS: PLATELET ESTIMATE NORMAL
[2021-12-03] MEDS ORDERED: POTASSIUM CHLORIDE INJ 40 MEQ in DEXT 5% WATER 250 ML IV ONE (11:00)
[2021-12-03] MEDS: KCL 20MEQ/100ML PREMIX 100 ML IV SCH ×2 (12:41→15:23)
[2021-12-03] MEDS: FERROUS SULFATE 325MG TABLET PO SCH (12:42)
[2021-12-03] MEDS: MEROPENEM 1,000 MG in SODIUM CHLORIDE 0.9% 100 ML IV SCH (18:40)
[2021-12-03] MEDS ORDERED: ASPI-1497 PO (20:50)
[2021-12-03] MEDS: PANTOPRAZOLE SODIUM 40 MG/VIAL IV SCH (21:47)
[2021-12-04] VITALS (22 sets, daily range): BP systolic 135–159; BP diastolic 79–121
[2021-12-04] MEDS: IPRATROPIUM/ALBUTEROL 0.5-3(2.5)MG/3ML NEB HHN SCH ×4 (02:01→20:14)
[2021-12-04 05:51] LABS: HEMATOCRIT. 28.6 % (42.0-52.0); HEMOGLOBIN. 9.6 g/dL (14.0-18.0); MEAN CORPUSCULAR HEMOGLOBIN 26.5 pg (28.0-32.0); MEAN CORPUSCULAR VOLUME 78.7 fL (80.0-94.0); MEAN PLATELET VOLUME 9.2 fl (7.4-10.4); PLATELET 306 x1000/uL (130-400); RED BLOOD CELL COUNT 3.63 mill/uL (4.7-6.1); RED CELL DISTRIBUTION WIDTH 22.1 % (11.6-14.6)
[2021-12-04] MEDS: LINEZOLID 600 MG PREMIX 300 ML IV SCH ×3 (06:40→21:21)
[2021-12-04 07:13] LABS: PHOSPHORUS 2.2 mg/dL (2.5-4.9)
[2021-12-04] MEDS: BLOOD SUGAR DIAGNOSTIC STRIP TEST SCH ×4 (07:20→21:24)
[2021-12-04] MEDS: INSULIN LISPRO 100 UNITS/ML SUBCUT SCH ×4 (08:00→21:00)
[2021-12-04] MEDS: LACTULOSE 20G/30ML UDC PO SCH ×2 (09:08→17:31)
[2021-12-04] MEDS: DOCUSATE SODIUM SUGAR FREE 100MG/10ML UDC PO SCH ×2 (09:08→17:32)
[2021-12-04 11:04] LABS: PLATELET ESTIMATE NORMAL
[2021-12-04] MEDS: FERROUS SULFATE 325MG TABLET PO SCH (13:48)
[2021-12-04] MEDS ORDERED: SODIUM PHOS,M-BASIC-D-BASIC 15 MM in DEXT 5% WATER 245 ML IV NR (15:00)
[2021-12-04] MEDS ORDERED: MAGNESIUM 2 G PREMIX 50 ML IV NR (15:00)
[2021-12-04] MEDS: MEROPENEM 1,000 MG in SODIUM CHLORIDE 0.9% 100 ML IV SCH ×4 (18:00→21:25)
[2021-12-04] MEDS: PANTOPRAZOLE SODIUM 40 MG/VIAL IV SCH (21:21)
[2021-12-05] VITALS (21 sets, daily range): BP systolic 119–147; BP diastolic 75–97
[2021-12-05] MEDS: IPRATROPIUM/ALBUTEROL 0.5-3(2.5)MG/3ML NEB HHN SCH ×3 (01:40→14:56)
[2021-12-05] MEDS: LINEZOLID 600 MG PREMIX 300 ML IV SCH ×2 (06:58→17:00)
[2021-12-05] MEDS: INSULIN LISPRO 100 UNITS/ML SUBCUT SCH ×4 (07:24→21:00)
[2021-12-05] MEDS: BLOOD SUGAR DIAGNOSTIC STRIP TEST SCH ×4 (07:24→21:57)
[2021-12-05] MEDS: DOCUSATE SODIUM SUGAR FREE 100MG/10ML UDC PO SCH ×2 (09:00→16:25)
[2021-12-05] MEDS: LACTULOSE 20G/30ML UDC PO SCH (09:00)
[2021-12-05] MEDS: FERROUS SULFATE 325MG TABLET PO SCH (12:38)
[2021-12-05] MEDS: RIFAXIMIN 550 MG TABLET PO SCH (21:52)
[2021-12-05] MEDS: MEROPENEM 1,000 MG in SODIUM CHLORIDE 0.9% 100 ML IV SCH (21:52)
[2021-12-05] MEDS: PANTOPRAZOLE SODIUM 40 MG/VIAL IV SCH (21:52)
[2021-12-06] VITALS (16 sets, daily range): BP systolic 128–165; BP diastolic 80–133
[2021-12-06 06:54] LABS: BASOPHILS % 0.6 % (0.0-2.0); EOSINOPHILS % 2.4 % (0.0-5.0); HEMATOCRIT. 24.3 % (42.0-52.0); HEMOGLOBIN. 8.1 g/dL (14.0-18.0); LYMPHOCYTES % 7.2 % (20.0-50.0); MEAN CORPUSCULAR HEMOGLOBIN 26.7 pg (28.0-32.0); MEAN CORPUSCULAR VOLUME 79.6 fL (80.0-94.0); MEAN PLATELET VOLUME 8.8 fl (7.4-10.4); MONOCYTES % 5.3 % (2.0-8.0); NEUTROPHILS % 84.5 % (40.0-76.0); PLATELET 364 x1000/uL (130-400); RED BLOOD CELL COUNT 3.05 mill/uL (4.7-6.1); RED CELL DISTRIBUTION WIDTH 21.5 % (11.6-14.6)
[2021-12-06 07:00] LABS: PHOSPHORUS 3.1 mg/dL (2.5-4.9)
[2021-12-06] MEDS: LINEZOLID 600 MG PREMIX 300 ML IV SCH ×2 (07:13→18:00)
[2021-12-06] MEDS: BLOOD SUGAR DIAGNOSTIC STRIP TEST SCH ×5 (07:13→20:36)
[2021-12-06] MEDS: INSULIN LISPRO 100 UNITS/ML SUBCUT SCH ×4 (07:13→20:37)
[2021-12-06] MEDS: RIFAXIMIN 550 MG TABLET PO SCH ×2 (09:00→20:36)
[2021-12-06] MEDS: DOCUSATE SODIUM SUGAR FREE 100MG/10ML UDC PO SCH ×2 (09:00→17:00)
[2021-12-06] MEDS: IPRATROPIUM/ALBUTEROL 0.5-3(2.5)MG/3ML NEB HHN SCH ×3 (09:11→18:00)
[2021-12-06] MEDS ORDERED: KCL 20MEQ/100ML PREMIX 100 ML IV SCH (10:00)
[2021-12-06] MEDS: FERROUS SULFATE 325MG TABLET PO SCH (14:43)
[2021-12-06] MEDS ORDERED: MORPHINE SULFATE 2 MG/ML CPJ (NOT FOR IM USE) IV PRN (15:15)
[2021-12-06] MEDS ORDERED: HYDROCODONE/ACETAMINOPHEN 10/325MG TABLET PO PRN (15:15)
[2021-12-06] MEDS ORDERED: NALOXONE HCL 0.4MG/ML VIAL IV PRN (16:45)
[2021-12-06] MEDS: MEROPENEM 1,000 MG in SODIUM CHLORIDE 0.9% 100 ML IV SCH (20:35)
[2021-12-06] MEDS: PANTOPRAZOLE SODIUM 40 MG/VIAL IV SCH (20:35)
[2021-12-07] VITALS (10 sets, daily range): BP systolic 104–149; BP diastolic 66–94
[2021-12-07] MEDS: LINEZOLID 600 MG PREMIX 300 ML IV SCH ×2 (05:59→17:41)
[2021-12-07] MEDS: BLOOD SUGAR DIAGNOSTIC STRIP TEST SCH ×4 (07:22→21:17)
[2021-12-07] MEDS: INSULIN LISPRO 100 UNITS/ML SUBCUT SCH ×4 (07:54→21:00)
[2021-12-07] MEDS: IPRATROPIUM/ALBUTEROL 0.5-3(2.5)MG/3ML NEB HHN SCH ×4 (08:15→21:16)
[2021-12-07] MEDS: DOCUSATE SODIUM SUGAR FREE 100MG/10ML UDC PO SCH ×2 (09:25→16:45)
[2021-12-07] MEDS: RIFAXIMIN 550 MG TABLET PO SCH ×2 (09:25→20:56)
[2021-12-07 11:13] LABS: HEMATOCRIT. 22.1 % (42.0-52.0); HEMOGLOBIN. 7.2 g/dL (14.0-18.0); MEAN CORPUSCULAR HEMOGLOBIN 26.3 pg (28.0-32.0); MEAN CORPUSCULAR VOLUME 80.4 fL (80.0-94.0); MEAN PLATELET VOLUME 8.1 fl (7.4-10.4); PLATELET 364 x1000/uL (130-400); RED BLOOD CELL COUNT 2.74 mill/uL (4.7-6.1); RED CELL DISTRIBUTION WIDTH 21.6 % (11.6-14.6)
[2021-12-07 12:00] LABS: PHOSPHORUS 3.9 mg/dL (2.5-4.9)
[2021-12-07] MEDS: FERROUS SULFATE 325MG TABLET PO SCH (13:00)
[2021-12-07 14:01] LABS: PLATELET ESTIMATE NORMAL
[2021-12-07] MEDS: MEROPENEM 1,000 MG in SODIUM CHLORIDE 0.9% 100 ML IV SCH (20:56)
[2021-12-07] MEDS: PANTOPRAZOLE SODIUM 40 MG/VIAL IV SCH (20:56)
[2021-12-07 23:00] LABS: HEMATOCRIT 18.7 % (42.0-52.0)
[2021-12-08] VITALS (16 sets, daily range): BP systolic 103–132; BP diastolic 54–86
[2021-12-08] MEDS: IPRATROPIUM/ALBUTEROL 0.5-3(2.5)MG/3ML NEB HHN SCH ×4 (02:25→19:43)
[2021-12-08] MEDS: LINEZOLID 600 MG PREMIX 300 ML IV SCH ×2 (05:00→17:01)
[2021-12-08 06:16] LABS: HEMATOCRIT. 22.1 % (42.0-52.0); HEMOGLOBIN. 7.5 g/dL (14.0-18.0); MEAN CORPUSCULAR HEMOGLOBIN 27.4 pg (28.0-32.0); MEAN CORPUSCULAR VOLUME 80.4 fL (80.0-94.0); MEAN PLATELET VOLUME 8.2 fl (7.4-10.4); PLATELET 313 x1000/uL (130-400); RED BLOOD CELL COUNT 2.75 mill/uL (4.7-6.1); RED CELL DISTRIBUTION WIDTH 19.7 % (11.6-14.6)
[2021-12-08 07:32] LABS: PHOSPHORUS 4.1 mg/dL (2.5-4.9)
[2021-12-08] MEDS: INSULIN LISPRO 100 UNITS/ML SUBCUT SCH ×4 (07:55→21:00)
[2021-12-08] MEDS: BLOOD SUGAR DIAGNOSTIC STRIP TEST SCH ×4 (07:55→21:03)
[2021-12-08] MEDS: RIFAXIMIN 550 MG TABLET PO SCH ×2 (10:02→20:23)
[2021-12-08] MEDS: DOCUSATE SODIUM SUGAR FREE 100MG/10ML UDC PO SCH ×2 (10:02→17:01)
[2021-12-08] MEDS: FERROUS SULFATE 325MG TABLET PO SCH (14:17)
[2021-12-08] MEDS: HYDROCODONE/ACETAMINOPHEN 5/325MG TABLET PO PRN (14:30)
[2021-12-08 14:42] LABS: PLATELET ESTIMATE NORMAL
[2021-12-08] MEDS: MEROPENEM 1,000 MG in SODIUM CHLORIDE 0.9% 100 ML IV SCH (20:23)
[2021-12-08] MEDS: PANTOPRAZOLE SODIUM 40 MG/VIAL IV SCH (20:23)
[2021-12-09] VITALS (12 sets, daily range): BP systolic 109–126; BP diastolic 45–84
[2021-12-09] MEDS: IPRATROPIUM/ALBUTEROL 0.5-3(2.5)MG/3ML NEB HHN SCH ×4 (01:19→21:32)
[2021-12-09] MEDS: LINEZOLID 600 MG PREMIX 300 ML IV SCH ×2 (05:09→17:06)
[2021-12-09] MEDS: BLOOD SUGAR DIAGNOSTIC STRIP TEST SCH ×4 (06:39→21:00)
[2021-12-09] MEDS: INSULIN LISPRO 100 UNITS/ML SUBCUT SCH ×4 (07:18→21:00)
[2021-12-09 08:53] LABS: MEAN CORPUSCULAR HEMOGLOBIN 27.3 pg (28.0-32.0); MEAN CORPUSCULAR VOLUME 81.6 fL (80.0-94.0); MEAN PLATELET VOLUME 8.6 fl (7.4-10.4); PLATELET 305 x1000/uL (130-400); RED BLOOD CELL COUNT 2.55 mill/uL (4.7-6.1); RED CELL DISTRIBUTION WIDTH 20.1 % (11.6-14.6)
[2021-12-09 09:00] LABS: HEMATOCRIT. 20.9 % (42.0-52.0)
[2021-12-09] MEDS: DOCUSATE SODIUM SUGAR FREE 100MG/10ML UDC PO SCH (09:24)
[2021-12-09] MEDS: RIFAXIMIN 550 MG TABLET PO SCH ×3 (09:29→22:37)
[2021-12-09 09:41] LABS: CHLORIDE 110 mEq/L (98-107)
[2021-12-09] MEDS: FERROUS SULFATE 325MG TABLET PO SCH (13:39)
[2021-12-09] MEDS: DOCUSATE SODIUM 100MG CAPSULE PO SCH (17:06)
[2021-12-09] MEDS: PANTOPRAZOLE SODIUM 40 MG/VIAL IV SCH (21:36)
[2021-12-09] MEDS: MEROPENEM 1,000 MG in SODIUM CHLORIDE 0.9% 100 ML IV SCH (21:36)
[2021-12-09 23:09] LABS: PLATELET ESTIMATE NORMAL
[2021-12-10] VITALS (11 sets, daily range): BP systolic 98–139; BP diastolic 60–93
[2021-12-10 00:20] LABS: HEMATOCRIT. 22.1 % (42.0-52.0); HEMOGLOBIN. 7.4 g/dL (14.0-18.0); MEAN CORPUSCULAR HEMOGLOBIN 27.3 pg (28.0-32.0); MEAN PLATELET VOLUME 8.6 fl (7.4-10.4); PLATELET 247 x1000/uL (130-400)
[2021-12-10 00:21] LABS: PHOSPHORUS 3.8 mg/dL (2.5-4.9)
[2021-12-10] MEDS: IPRATROPIUM/ALBUTEROL 0.5-3(2.5)MG/3ML NEB HHN SCH ×4 (01:46→20:38)
[2021-12-10 04:01] LABS: PLATELET ESTIMATE NORMAL
[2021-12-10] MEDS: LINEZOLID 600 MG PREMIX 300 ML IV SCH ×2 (06:26→17:40)
[2021-12-10] MEDS: BLOOD SUGAR DIAGNOSTIC STRIP TEST SCH ×4 (07:30→21:00)
[2021-12-10] MEDS: INSULIN LISPRO 100 UNITS/ML SUBCUT SCH ×4 (08:00→21:00)
[2021-12-10] MEDS: DOCUSATE SODIUM 100MG CAPSULE PO SCH ×2 (09:06→17:12)
[2021-12-10] MEDS ORDERED: POTASSIUM CHLORIDE 20MEQ TABLET SR PO NR (10:30)
[2021-12-10] MEDS: FERROUS SULFATE 325MG TABLET PO SCH (12:50)
[2021-12-10] MEDS: RIFAXIMIN 550 MG TABLET PO SCH (21:49)
[2021-12-10] MEDS: PANTOPRAZOLE SODIUM 40 MG/VIAL IV SCH (21:49)
[2021-12-10] MEDS: MEROPENEM 1,000 MG in SODIUM CHLORIDE 0.9% 100 ML IV SCH (21:49)
[2021-12-10] MEDS: HYDROCODONE/ACETAMINOPHEN 5/325MG TABLET PO PRN (21:50)
[2021-12-11] VITALS (12 sets, daily range): BP systolic 110–163; BP diastolic 59–98
[2021-12-11] MEDS: IPRATROPIUM/ALBUTEROL 0.5-3(2.5)MG/3ML NEB HHN SCH ×4 (02:10→20:58)
[2021-12-11 06:22] LABS: PHOSPHORUS 3.3 mg/dL (2.5-4.9)
[2021-12-11 06:55] LABS: HEMATOCRIT. 24.4 % (42.0-52.0); HEMOGLOBIN. 8.3 g/dL (14.0-18.0); MEAN CORPUSCULAR HEMOGLOBIN 27.6 pg (28.0-32.0); MEAN CORPUSCULAR VOLUME 81.4 fL (80.0-94.0); MEAN PLATELET VOLUME 8.3 fl (7.4-10.4); PLATELET 234 x1000/uL (130-400); RED CELL DISTRIBUTION WIDTH 19.8 % (11.6-14.6)
[2021-12-11] MEDS: BLOOD SUGAR DIAGNOSTIC STRIP TEST SCH ×4 (07:30→21:00)
[2021-12-11] MEDS: INSULIN LISPRO 100 UNITS/ML SUBCUT SCH ×4 (08:00→21:00)
[2021-12-11] MEDS: DOCUSATE SODIUM 100MG CAPSULE PO SCH ×2 (09:00→17:00)
[2021-12-11 10:38] LABS: PLATELET ESTIMATE NORMAL
[2021-12-11] MEDS ORDERED: POTASSIUM CHLORIDE 20MEQ TABLET SR PO NR (12:00)
[2021-12-11] MEDS: FERROUS SULFATE 325MG TABLET PO SCH (12:20)
[2021-12-11 12:24] LABS: BG BASE EXCESS -0.9 mmol/L (-2.0-2.0); BG CARBOXYHEMOGLOBIN 0.5 % (0.5-1.5); BG DEOXYHEMOGLOBIN 3.8 % (0.0-5.0); BG FRACTION INSPIRED OXYGEN 21; BG HCO3 ACT 20.4 mmol/L (22.0-26.0); BG METHEMOGLOBIN 0.3 % (0.0-1.5); BG OXYGEN SATURATION 96.2 % (92.0-98.5); BG OXYHEMOGLOBIN 95.4 % (94.0-97.0); BG PCO2 23.3 mmHg (35.0-45.0); BG PH 7.561 (7.350-7.450); BG PO2 78.7 mmHg (75.0-100.0); BG SAMPLE SITE RIGHT RADIAL; BG TOTAL HEMOGLOBIN 9.3 g/dL (12.0-18.0); BG VENT MODE ROOM AIR
[2021-12-11] MEDS: PANTOPRAZOLE SODIUM 40 MG/VIAL IV SCH (22:24)
[2021-12-12] VITALS (19 sets, daily range): BP systolic 104–156; BP diastolic 53–104
[2021-12-12] MEDS: IPRATROPIUM/ALBUTEROL 0.5-3(2.5)MG/3ML NEB HHN SCH ×4 (01:10→20:52)
[2021-12-12] MEDS: BLOOD SUGAR DIAGNOSTIC STRIP TEST SCH ×4 (07:30→21:00)
[2021-12-12] MEDS: INSULIN LISPRO 100 UNITS/ML SUBCUT SCH ×4 (08:00→21:00)
[2021-12-12] MEDS: DOCUSATE SODIUM 100MG CAPSULE PO SCH ×2 (08:54→16:47)
[2021-12-12] MEDS ORDERED: FENTANYL CITRATE/PF 50MCG/ML 2ML VIAL ONE (09:38)
[2021-12-12] MEDS ORDERED: DIPHENHYDRAMINE 50MG/ML VIAL ONE (09:38)
[2021-12-12] MEDS ORDERED: VERAPAMIL HCL 2.5 MG/1 ML 2ML VIAL IV ONE (09:38)
[2021-12-12] MEDS ORDERED: MIDAZOLAM HCL 2 MG/2 ML VIAL ONE (09:39)
[2021-12-12] MEDS ORDERED: IODIXANOL 320MG/ML 100 ML BOTTLE IV ONE (09:39)
[2021-12-12] MEDS ORDERED: LIDOCAINE HCL 1% 10 MG/ML 10ML VIAL ONE (09:39)
[2021-12-12] MEDS ORDERED: HEPARIN 1000 UNITS/ML 10ML ONE (09:39)
[2021-12-12] MEDS ORDERED: ACETAMINOPHEN 325MG TABLET PO PRN (11:45)
[2021-12-12] MEDS ORDERED: ATROPINE SULFATE 1MG/10ML SYR IV PRN (11:45)
[2021-12-12] MEDS: FERROUS SULFATE 325MG TABLET PO SCH (12:44)
[2021-12-12] MEDS ORDERED: SODIUM CHLORIDE 0.45% 500 ML IV ONE (14:00)
[2021-12-12] MEDS ORDERED: MAGNESIUM 2 G PREMIX 50 ML IV NR (14:00)
[2021-12-12] MEDS ORDERED: KCL 20MEQ/100ML PREMIX 100 ML IV NR (14:00)
[2021-12-12] MEDS: PANTOPRAZOLE SODIUM 40 MG/VIAL IV SCH (23:41)
[2021-12-13] VITALS (7 sets, daily range): BP systolic 130–148; BP diastolic 68–98
[2021-12-13] MEDS: IPRATROPIUM/ALBUTEROL 0.5-3(2.5)MG/3ML NEB HHN SCH ×2 (00:47→08:55)
[2021-12-13] MEDS: INSULIN LISPRO 100 UNITS/ML SUBCUT SCH (08:00)
[2021-12-13] MEDS: BLOOD SUGAR DIAGNOSTIC STRIP TEST SCH (08:24)
[2021-12-13] MEDS: DOCUSATE SODIUM 100MG CAPSULE PO SCH (08:43)
[2021-12-13 09:17] LABS: HEMATOCRIT. 30.2 % (42.0-52.0); HEMOGLOBIN. 10.2 g/dL (14.0-18.0); MEAN CORPUSCULAR HEMOGLOBIN 27.7 pg (28.0-32.0); MEAN CORPUSCULAR VOLUME 82.5 fL (80.0-94.0); MEAN PLATELET VOLUME 8.2 fl (7.4-10.4); PLATELET 233 x1000/uL (130-400); RED BLOOD CELL COUNT 3.66 mill/uL (4.7-6.1); RED CELL DISTRIBUTION WIDTH 20.3 % (11.6-14.6)
[2021-12-13 10:08] LABS: PHOSPHORUS 3.1 mg/dL (2.5-4.9)
[2021-12-13 15:47] LABS: PLATELET ESTIMATE NORMAL
== END 2021-12-13 10:45 | disposition short-term general hospital (02) | DRG 870 ==
LOC: ER 08:12 → 7WST 13:13 → ENRESERV 13:54 → MICUSO 20:40 → 5EST 11-21 18:00 → CVICU 11-23 03:00 → 5EST 12-03 06:45
PROVIDERS: ADMIT Internal Medicine; ATTEND Internal Medicine
PROC: 5A12012 Performance of Cardiac Output, Single, Manual (ICD-10-PCS; 2021-11-19)
PROC: 0BH17EZ Insertion of Endotracheal Airway into Trachea, Via Natural or Artificial Opening (ICD-10-PCS; 2021-11-19)
PROC: 5A1935Z Respiratory Ventilation, Less than 24 Consecutive Hours (ICD-10-PCS; 2021-11-19)
PROC: 5A1955Z Respiratory Ventilation, Greater than 96 Consecutive Hours (ICD-10-PCS; principal; 2021-11-23)
PROC: 0BH17EZ Insertion of Endotracheal Airway into Trachea, Via Natural or Artificial Opening (ICD-10-PCS; 2021-11-23)
PROC: 5A1223Z Performance of Cardiac Pacing, Continuous (ICD-10-PCS; 2021-11-23)
PROC: 5A1D70Z Performance of Urinary Filtration, Intermittent, Less than 6 Hours Per Day (ICD-10-PCS; 2021-11-23)
PROC: 05HN33Z Insertion of Infusion Device into Left Internal Jugular Vein, Percutaneous Approach (ICD-10-PCS; 2021-11-23)
PROC: B544ZZA Ultrasonography of Left Jugular Veins, Guidance (ICD-10-PCS; 2021-11-23)
PROC: 30243P1 Transfusion of Nonautologous Frozen Red Cells into Central Vein, Percutaneous Approach (ICD-10-PCS; 2021-11-24)
PROC: 5A1D70Z Performance of Urinary Filtration, Intermittent, Less than 6 Hours Per Day (ICD-10-PCS; 2021-11-26)
PROC: 5A1D70Z Performance of Urinary Filtration, Intermittent, Less than 6 Hours Per Day (ICD-10-PCS; 2021-11-28)
PROC: 5A09357 Assistance with Respiratory Ventilation, Less than 24 Consecutive Hours, Continuous Positive Airway Pressure (ICD-10-PCS; 2021-11-30)
PROC: 5A1D70Z Performance of Urinary Filtration, Intermittent, Less than 6 Hours Per Day (ICD-10-PCS; 2021-11-30)
PROC: 5A1D70Z Performance of Urinary Filtration, Intermittent, Less than 6 Hours Per Day (ICD-10-PCS; 2021-12-02)
PROC: 5A1D70Z Performance of Urinary Filtration, Intermittent, Less than 6 Hours Per Day (ICD-10-PCS; 2021-12-03)
PROC: 30243N1 Transfusion of Nonautologous Red Blood Cells into Central Vein, Percutaneous Approach (ICD-10-PCS; 2021-12-09)
PROC: 4A023N7 Measurement of Cardiac Sampling and Pressure, Left Heart, Percutaneous Approach (ICD-10-PCS; 2021-12-12)
PROC: B2111ZZ Fluoroscopy of Multiple Coronary Arteries using Low Osmolar Contrast (ICD-10-PCS; 2021-12-12)
DX: A41.59 Other Gram-negative sepsis (principal); I46.2 Cardiac arrest due to underlying cardiac condition; E43 Unspecified severe protein-calorie malnutrition; J96.01 Acute respiratory failure with hypoxia; K85.90 Acute pancreatitis without necrosis or infection, unspecified; K72.00 Acute and subacute hepatic failure without coma; N17.9 Acute kidney failure, unspecified; E87.2 Acidosis; N18.4 Chronic kidney disease, stage 4 (severe); N13.6 Pyonephrosis; D68.9 Coagulation defect, unspecified; G93.40 Encephalopathy, unspecified; I13.0 Hypertensive heart and chronic kidney disease with heart failure and stage 1 through stage 4 chronic kidney disease, or unspecified chronic kidney disease; I50.32 Chronic diastolic (congestive) heart failure; K80.10 Calculus of gallbladder with chronic cholecystitis without obstruction; N13.8 Other obstructive and reflux uropathy; R18.8 Other ascites; I44.2 Atrioventricular block, complete; N32.9 Bladder disorder, unspecified; Z20.822 Contact with and (suspected) exposure to COVID-19; I49.5 Sick sinus syndrome; M48.061 Spinal stenosis, lumbar region without neurogenic claudication; R79.89 Other specified abnormal findings of blood chemistry; B96.1 Klebsiella pneumoniae [K. pneumoniae] as the cause of diseases classified elsewhere; E11.22 Type 2 diabetes mellitus with diabetic chronic kidney disease; E78.5 Hyperlipidemia, unspecified; E87.6 Hypokalemia; E88.09 Other disorders of plasma-protein metabolism, not elsewhere classified; I25.10 Atherosclerotic heart disease of native coronary artery without angina pectoris; I27.29 Other secondary pulmonary hypertension; K56.41 Fecal impaction; K57.30 Diverticulosis of large intestine without perforation or abscess without bleeding; L89.620 Pressure ulcer of left heel, unstageable; M10.9 Gout, unspecified; M48.02 Spinal stenosis, cervical region; N28.1 Cyst of kidney, acquired; I07.1 Rheumatic tricuspid insufficiency; N40.1 Benign prostatic hyperplasia with lower urinary tract symptoms; R31.0 Gross hematuria; E11.65 Type 2 diabetes mellitus with hyperglycemia; Z79.84 Long term (current) use of oral hypoglycemic drugs; Z82.49 Family history of ischemic heart disease and other diseases of the circulatory system; Z85.46 Personal history of malignant neoplasm of prostate; Z90.79 Acquired absence of other genital organ(s); I69.398 Other sequelae of cerebral infarction; Z68.28 Body mass index [BMI] 28.0-28.9, adult
CPT/HCPCS: 31500; 36415; 36556; 36600; 71045; 74176; 76700; 76770; 76857; 76937; 78227; 78580; 80048; 80053; 80076; 80202; 81003; 82140; 82150; 82248; 82375; 82550; 82805; 82962; 83036; 83540; 83550; 83735; 84100; 84145; 84153; 84439; 84443; 84478; 85014; 85018; 85025; 85027; 85049; 85384; 86705; 86709; 86803; 86850; 86900; 86920; 86927; 87070; 87077; 87186; 87340; 87426; 92610; 92950; 92953; 93005; 93306; 93458; 93970; 94002; 94003; 94640; 97162; 97166; 97530; 97535; 99285; A9537; C1752; C1769; C1887; C1893; C1894; C9113; J0153; J0461; J0696; J0885; J1200; J1265; J1644; J1815; J2020; J2185; J2250; J2270; J2370; J2704; J3010; J3370; J3475; J3480; J3490; J7030; J7042; J7050; J7060; J7070; L1830; P9016; P9017; P9047; Q9967; C1751; G0103

== ENCOUNTER 2022-06-23 16:19 | Inpatient (IN) | payer MEDICARE, OTHER ==
[~2022-06-23] VITALS: Ht 177.8 cm; Wt 62.2 kg
[~2022-06-23 16:19] MED LIST changes: +ASPI-1497 PO
[2022-06-23] MEDS ORDERED: SODIUM CHLORIDE 0.9% 1000ML BAG (SEPSIS BOLUS) IV ONE ×2 (19:30→21:30)
[2022-06-23] MEDS ORDERED: KETOROLAC 15MG/ML VIAL IV ONE (19:30)
[2022-06-23] MEDS ORDERED: PIPERACILLIN/TAZ 3.375G PREMIX 50 ML IV ONE (21:30)
[2022-06-23] MEDS ORDERED: VANCOMYCIN 1G PREMIX 200 ML IV ONE (21:30)
[2022-06-23 21:43] LABS: CLARITY URINE TURBID (CLEAR); COLOR URINE YELLOW (YELLOW); KETONES URINE NEGATIVE (NEGATIVE); LEUKOCYTE ESTERASE URINE 3+ (NEGATIVE); NITRITE URINE POSITIVE (NEGATIVE); OCCULT BLOOD URINE 1+ (NEGATIVE); PROTEIN URINE 2+ (NEGATIVE); SPECIFIC GRAVITY URINE 1.008 (1.005-1.030); UROBILINOGEN URINE 0.2 E.U./dL (0.2-1.0)
[2022-06-23 21:44] LABS: HEMATOCRIT. 32.1 % (42.0-52.0); HEMOGLOBIN. 10.2 g/dL (14.0-18.0); MEAN CORPUSCULAR HEMOGLOBIN 27.2 pg (28.0-32.0); MEAN CORPUSCULAR VOLUME 85.2 fL (80.0-94.0); MEAN PLATELET VOLUME 7.9 fl (7.4-10.4); PLATELET 257 x1000/uL (130-400); RED BLOOD CELL COUNT 3.76 mill/uL (4.7-6.1); RED CELL DISTRIBUTION WIDTH 20.8 % (11.6-14.6)
[2022-06-23 21:52] LABS: INR 1.1; PROTHROMBIN TIME 11.7 sec (9.6-11.0)
[2022-06-23 22:20] LABS: PLATELET ESTIMATE NORMAL
[2022-06-23 22:26] LABS: CHLORIDE 110 mEq/L (98-107)
[2022-06-24] MEDS ORDERED: ACETAMINOPHEN 325MG TABLET PO PRN (09:15)
[2022-06-24] MEDS ORDERED: ONDANSETRON HCL 4MG/2ML INJ IV PRN (09:15)
[2022-06-24 11:11] VITALS: BP 110/69
[2022-06-24 11:52] VITALS: BP 110/69
[2022-06-24] MEDS ORDERED: INFLUENZA VACCINE IM ONE (12:15)
[2022-06-24] MEDS: MEROPENEM 1,000 MG in SODIUM CHLORIDE 0.9% 100 ML IV SCH (15:36)
[2022-06-24 16:11] VITALS: BP 114/78
[2022-06-24 20:41] VITALS: BP 90/59
[2022-06-24] MEDS: LINAGLIPTIN 5MG TABLET PO SCH (20:51)
[2022-06-24] MEDS: PREDNISONE 10MG TABLET PO SCH (20:51)
[2022-06-25] VITALS: BP 97/64
[2022-06-25 04:00] VITALS: BP 95/51
[2022-06-25 05:58] LABS: BASOPHILS % 0.3 % (0.0-2.0); EOSINOPHILS % 1.5 % (0.0-5.0); LYMPHOCYTES % 11.1 % (20.0-50.0); MEAN CORPUSCULAR VOLUME 83.5 fL (80.0-94.0); MEAN PLATELET VOLUME 8.3 fl (7.4-10.4); MONOCYTES % 9.4 % (2.0-8.0); NEUTROPHILS % 77.7 % (40.0-76.0); PLATELET 206 x1000/uL (130-400); RED BLOOD CELL COUNT 2.88 mill/uL (4.7-6.1); RED CELL DISTRIBUTION WIDTH 19.8 % (11.6-14.6)
[2022-06-25 07:23] LABS: PHOSPHORUS 3.3 mg/dL (2.5-4.9)
[2022-06-25 08:00] VITALS: BP 114/82
[2022-06-25] MEDS: PREDNISONE 10MG TABLET PO SCH (08:39)
[2022-06-25] MEDS: LINAGLIPTIN 5MG TABLET PO SCH (08:42)
[2022-06-25] MEDS ORDERED: ASPIRIN 81MG EC TABLET PO SCH (09:00)
[2022-06-25] MEDS ORDERED: METOPROLOL TARTRATE 50MG TABLET PO SCH (09:00)
[2022-06-25] MEDS ORDERED: AMLODIPINE 10MG TABLET PO SCH (09:00)
[2022-06-25] MEDS: MEROPENEM 1,000 MG in SODIUM CHLORIDE 0.9% 100 ML IV SCH (10:49)
[2022-06-25 12:00] VITALS: BP 99/65
[2022-06-25 16:00] VITALS: BP 95/59
[2022-06-25 20:00] VITALS: BP 96/66
[2022-06-26] VITALS: BP 101/70
[2022-06-26 04:00] VITALS: BP 101/70
[2022-06-26 07:14] LABS: BASOPHILS % 0.1 % (0.0-2.0); EOSINOPHILS % 1.3 % (0.0-5.0); HEMATOCRIT. 26.2 % (42.0-52.0); HEMOGLOBIN. 8.7 g/dL (14.0-18.0); LYMPHOCYTES % 16.3 % (20.0-50.0); MEAN CORPUSCULAR HEMOGLOBIN 27.6 pg (28.0-32.0); MEAN CORPUSCULAR VOLUME 83.2 fL (80.0-94.0); MEAN PLATELET VOLUME 8.1 fl (7.4-10.4); MONOCYTES % 10.3 % (2.0-8.0); PLATELET 240 x1000/uL (130-400); RED BLOOD CELL COUNT 3.14 mill/uL (4.7-6.1); RED CELL DISTRIBUTION WIDTH 19.5 % (11.6-14.6)
[2022-06-26] MEDS: LINAGLIPTIN 5MG TABLET PO SCH (08:22)
[2022-06-26] MEDS: PREDNISONE 10MG TABLET PO SCH (08:22)
[2022-06-26 12:00] VITALS: BP 96/58
[2022-06-26] MEDS: MEROPENEM 1,000 MG in SODIUM CHLORIDE 0.9% 100 ML IV SCH (12:02)
[2022-06-26 15:34] LABS: PHOSPHORUS 3.5 mg/dL (2.5-4.9)
[2022-06-26 16:00] VITALS: BP 98/63
[2022-06-26 20:00] VITALS: BP 119/62
[2022-06-27] VITALS: BP 139/76
[2022-06-27 04:10] VITALS: BP 115/67
[2022-06-27 07:03] LABS: BASOPHILS % 0.1 % (0.0-2.0); EOSINOPHILS % 2.7 % (0.0-5.0); HEMOGLOBIN. 8.9 g/dL (14.0-18.0); LYMPHOCYTES % 14.5 % (20.0-50.0); MEAN CORPUSCULAR HEMOGLOBIN 27.6 pg (28.0-32.0); MEAN CORPUSCULAR VOLUME 83.8 fL (80.0-94.0); MEAN PLATELET VOLUME 8.2 fl (7.4-10.4); MONOCYTES % 6.6 % (2.0-8.0); NEUTROPHILS % 76.1 % (40.0-76.0); PLATELET 261 x1000/uL (130-400); RED BLOOD CELL COUNT 3.22 mill/uL (4.7-6.1); RED CELL DISTRIBUTION WIDTH 19.5 % (11.6-14.6)
[2022-06-27 08:00] VITALS: BP 109/77
[2022-06-27] MEDS: PREDNISONE 20MG TABLET PO SCH (08:04)
[2022-06-27] MEDS: LINAGLIPTIN 5MG TABLET PO SCH (08:04)
[2022-06-27 09:13] LABS: PHOSPHORUS 3.3 mg/dL (2.5-4.9)
[2022-06-27] MEDS ORDERED: IOHEXOL-300 100 ML BOTTLE ONE (09:17)
[2022-06-27] MEDS ORDERED: LIDOCAINE HCL 1% 10 MG/ML 10ML VIAL ONE (09:17)
[2022-06-27] MEDS ORDERED: PROPOFOL 200MG/20ML VIAL IV ONE (09:46)
[2022-06-27] MEDS ORDERED: FENTANYL CITRATE/PF 50MCG/ML 2ML VIAL ONE (09:47)
[2022-06-27] MEDS ORDERED: MIDAZOLAM HCL 2 MG/2 ML VIAL ONE (09:47)
[2022-06-27] MEDS ORDERED: ONDANSETRON HCL 4MG/2ML INJ ONE (09:47)
[2022-06-27] MEDS ORDERED: SUCCINYLCHOLINE CHLORIDE 200MG/10ML IV ONE (09:47)
[2022-06-27] MEDS ORDERED: DEXAMETHASONE 4MG/ML 1ML VIAL ONE (09:47)
[2022-06-27] MEDS ORDERED: ROCURONIUM BROMIDE 10MG/ML VIAL 5ML IV ONE (09:49)
[2022-06-27] MEDS: MEROPENEM 1,000 MG in SODIUM CHLORIDE 0.9% 100 ML IV SCH ×2 (10:00→16:26)
[2022-06-27] MEDS ORDERED: ETOMIDATE 2MG/ML 10ML VIAL IV ONE (10:21)
[2022-06-27] MEDS ORDERED: EPHEDRINE SULFATE 50MG/ML VIAL ONE (10:41)
[2022-06-27] MEDS ORDERED: FENTANYL CITRATE/PF 50MCG/ML 2ML VIAL IV PRN (12:30)
[2022-06-27] MEDS ORDERED: HYDROMORPHONE HCL/PF 2MG/ML CPJ IV PRN (12:30)
[2022-06-27 13:45] VITALS: BP 106/71
[2022-06-27 16:00] VITALS: BP 111/81
[2022-06-27 20:00] VITALS: BP 103/64
[2022-06-28] VITALS: BP 101/72
[2022-06-28 04:00] VITALS: BP 106/69
[2022-06-28 07:48] LABS: BASOPHILS % 0.6 % (0.0-2.0); EOSINOPHILS % 1.3 % (0.0-5.0); HEMATOCRIT. 25.9 % (42.0-52.0); HEMOGLOBIN. 8.4 g/dL (14.0-18.0); LYMPHOCYTES % 14.7 % (20.0-50.0); MEAN CORPUSCULAR HEMOGLOBIN 27.4 pg (28.0-32.0); MEAN CORPUSCULAR VOLUME 84.3 fL (80.0-94.0); MEAN PLATELET VOLUME 8.1 fl (7.4-10.4); MONOCYTES % 9.7 % (2.0-8.0); NEUTROPHILS % 73.7 % (40.0-76.0); PLATELET 234 x1000/uL (130-400); RED BLOOD CELL COUNT 3.07 mill/uL (4.7-6.1); RED CELL DISTRIBUTION WIDTH 19.8 % (11.6-14.6)
[2022-06-28] MEDS ORDERED: IOHEXOL-300 50 ML BOTTLE IV ONE (07:55)
[2022-06-28] MEDS ORDERED: LIDOCAINE HCL 1% 10 MG/ML 10ML VIAL ONE (07:55)
[2022-06-28 08:00] VITALS: BP 104/69
[2022-06-28 08:45] LABS: PHOSPHORUS 3.5 mg/dL (2.5-4.9)
[2022-06-28] MEDS: LINAGLIPTIN 5MG TABLET PO SCH (09:35)
[2022-06-28] MEDS: MEROPENEM 1,000 MG in SODIUM CHLORIDE 0.9% 100 ML IV SCH (09:35)
[2022-06-28] MEDS: PREDNISONE 20MG TABLET PO SCH (09:35)
[2022-06-28 12:00] VITALS: BP 121/89
[2022-06-28 16:00] VITALS: BP 114/76
[2022-06-28 20:00] VITALS: BP 128/84
[2022-06-28] MEDS ORDERED: NALOXONE HCL 0.4MG/ML VIAL IV PRN (20:30)
[2022-06-28] MEDS: HYDROCODONE/ACETAMINOPHEN 10/325MG TABLET PO PRN (20:38)
[2022-06-29] VITALS (7 sets, daily range): BP systolic 117–163; BP diastolic 76–120
[2022-06-29 06:52] LABS: HEMATOCRIT. 29.6 % (42.0-52.0); HEMOGLOBIN. 9.6 g/dL (14.0-18.0); MEAN CORPUSCULAR HEMOGLOBIN 27.4 pg (28.0-32.0); MEAN CORPUSCULAR VOLUME 84.6 fL (80.0-94.0); MEAN PLATELET VOLUME 8.1 fl (7.4-10.4); PLATELET 320 x1000/uL (130-400); RED CELL DISTRIBUTION WIDTH 20.3 % (11.6-14.6)
[2022-06-29 07:33] LABS: PHOSPHORUS 3.6 mg/dL (2.5-4.9)
[2022-06-29] MEDS: PREDNISONE 20MG TABLET PO SCH (08:08)
[2022-06-29] MEDS: LINAGLIPTIN 5MG TABLET PO SCH (08:08)
[2022-06-29] MEDS: METOPROLOL TARTRATE 50MG TABLET PO SCH ×2 (08:08→21:00)
[2022-06-30] VITALS: BP 133/93
[2022-06-30 04:00] VITALS: BP 131/98
[2022-06-30 05:22] LABS: PLATELET ESTIMATE NORMAL
[2022-06-30 08:00] VITALS: BP 125/92
[2022-06-30 08:35] LABS: HEMATOCRIT. 27.5 % (42.0-52.0); HEMOGLOBIN. 8.9 g/dL (14.0-18.0); MEAN CORPUSCULAR HEMOGLOBIN 27.4 pg (28.0-32.0); MEAN CORPUSCULAR VOLUME 84.7 fL (80.0-94.0); MEAN PLATELET VOLUME 8.5 fl (7.4-10.4); PLATELET 313 x1000/uL (130-400); RED BLOOD CELL COUNT 3.25 mill/uL (4.7-6.1); RED CELL DISTRIBUTION WIDTH 19.9 % (11.6-14.6)
[2022-06-30 09:01] LABS: PHOSPHORUS 5.2 mg/dL (2.5-4.9)
[2022-06-30] MEDS: MEROPENEM 1,000 MG in SODIUM CHLORIDE 0.9% 100 ML IV SCH ×2 (10:00→11:05)
[2022-06-30] MEDS: METOPROLOL TARTRATE 50MG TABLET PO SCH ×2 (11:06→21:00)
[2022-06-30] MEDS: LINAGLIPTIN 5MG TABLET PO SCH (11:06)
[2022-06-30] MEDS: PREDNISONE 20MG TABLET PO SCH (11:06)
[2022-06-30] MEDS: HYDROCODONE/ACETAMINOPHEN 10/325MG TABLET PO PRN (11:07)
[2022-06-30 12:00] VITALS: BP 116/85
[2022-06-30 13:39] LABS: PLATELET ESTIMATE NORMAL
[2022-06-30 16:00] VITALS: BP 111/78
[2022-06-30] MEDS: DEXT 5%/0.9% NACL 1,000 ML IV SCH (16:37)
[2022-06-30 20:00] VITALS: BP 109/80
[2022-07-01] VITALS: BP 121/90
[2022-07-01] MEDS: DEXT 5%/0.9% NACL 1,000 ML IV SCH ×3 (00:30→20:45)
[2022-07-01 04:00] VITALS: BP 122/89
[2022-07-01 07:01] LABS: EOSINOPHILS % 0.1 % (0.0-5.0); HEMATOCRIT. 26.6 % (42.0-52.0); HEMOGLOBIN. 8.8 g/dL (14.0-18.0); LYMPHOCYTES % 8.5 % (20.0-50.0); MEAN CORPUSCULAR HEMOGLOBIN 27.9 pg (28.0-32.0); MEAN CORPUSCULAR VOLUME 84.7 fL (80.0-94.0); MEAN PLATELET VOLUME 8.2 fl (7.4-10.4); MONOCYTES % 10.6 % (2.0-8.0); NEUTROPHILS % 80.8 % (40.0-76.0); PLATELET 276 x1000/uL (130-400); RED BLOOD CELL COUNT 3.14 mill/uL (4.7-6.1)
[2022-07-01 07:32] LABS: PHOSPHORUS 4.9 mg/dL (2.5-4.9)
[2022-07-01] MEDS: PREDNISONE 20MG TABLET PO SCH (09:15)
[2022-07-01] MEDS: METOPROLOL TARTRATE 50MG TABLET PO SCH ×2 (09:16→21:08)
[2022-07-01] MEDS: LINAGLIPTIN 5MG TABLET PO SCH (09:16)
[2022-07-01] MEDS: MEROPENEM 1,000 MG in SODIUM CHLORIDE 0.9% 100 ML IV SCH (10:05)
[2022-07-01 12:00] VITALS: BP 108/75
[2022-07-01 16:00] VITALS: BP 112/82
[2022-07-01] MEDS: CITRIC ACID/SODIUM CITRATE SOLN 30ML UDC PO SCH ×2 (16:33→16:52)
[2022-07-01] MEDS: DOCUSATE SODIUM 250MG CAPSULE PO SCH (17:30)
[2022-07-01 20:00] VITALS: BP 126/87
[2022-07-02 04:00] VITALS: BP 150/73
[2022-07-02] MEDS: DEXT 5%/0.9% NACL 1,000 ML IV SCH (07:00)
[2022-07-02 07:14] LABS: BASOPHILS % 0.2 % (0.0-2.0); HEMATOCRIT. 27.6 % (42.0-52.0); HEMOGLOBIN. 9.2 g/dL (14.0-18.0); LYMPHOCYTES % 9.3 % (20.0-50.0); MEAN CORPUSCULAR HEMOGLOBIN 28.2 pg (28.0-32.0); MEAN CORPUSCULAR VOLUME 84.8 fL (80.0-94.0); MEAN PLATELET VOLUME 8.5 fl (7.4-10.4); MONOCYTES % 9.1 % (2.0-8.0); NEUTROPHILS % 81.4 % (40.0-76.0); PLATELET 306 x1000/uL (130-400); RED BLOOD CELL COUNT 3.25 mill/uL (4.7-6.1); RED CELL DISTRIBUTION WIDTH 20.3 % (11.6-14.6)
[2022-07-02 08:00] VITALS: BP 142/97
[2022-07-02] MEDS: PREDNISONE 20MG TABLET PO SCH (10:01)
[2022-07-02] MEDS: CITRIC ACID/SODIUM CITRATE SOLN 30ML UDC PO SCH (10:01)
[2022-07-02] MEDS: LINAGLIPTIN 5MG TABLET PO SCH (10:01)
[2022-07-02] MEDS: METOPROLOL TARTRATE 50MG TABLET PO SCH (10:01)
[2022-07-02] MEDS: MEROPENEM 1,000 MG in SODIUM CHLORIDE 0.9% 100 ML IV SCH (10:01)
[2022-07-02] MEDS: DOCUSATE SODIUM 250MG CAPSULE PO SCH (10:01)
[2022-07-02 12:32] VITALS: BP 117/86
== END 2022-07-02 14:46 | disposition home or self-care (01) | DRG 698 ==
LOC: ER 16:19 → MICUSO 23:15 → EDBEDREQTM 23:28 → EDBEDREQ 23:28 → 7WST 06-24 12:25 → 6EST 06-28 23:20
PROVIDERS: ADMIT Internal Medicine; ATTEND Internal Medicine
PROC: 0T783DZ Dilation of Bilateral Ureters with Intraluminal Device, Percutaneous Approach (ICD-10-PCS; 2022-06-27)
PROC: BT13YZZ Fluoroscopy of Bilateral Kidneys using Other Contrast (ICD-10-PCS; 2022-06-27)
PROC: 0T9030Z Drainage of Right Kidney with Drainage Device, Percutaneous Approach (ICD-10-PCS; 2022-06-27)
PROC: 0T25X0Z Change Drainage Device in Kidney, External Approach (ICD-10-PCS; 2022-06-27)
PROC: 0T9130Z Drainage of Left Kidney with Drainage Device, Percutaneous Approach (ICD-10-PCS; 2022-06-27)
PROC: 02HV33Z Insertion of Infusion Device into Superior Vena Cava, Percutaneous Approach (ICD-10-PCS; principal; 2022-06-28)
PROC: B518YZA Fluoroscopy of Superior Vena Cava using Other Contrast, Guidance (ICD-10-PCS; 2022-06-28)
DX: T83.022A Displacement of nephrostomy catheter, initial encounter (principal); A41.9 Sepsis, unspecified organism; E87.20 Acidosis, unspecified; N13.6 Pyonephrosis; N17.9 Acute kidney failure, unspecified; N18.4 Chronic kidney disease, stage 4 (severe); N13.8 Other obstructive and reflux uropathy; J90 Pleural effusion, not elsewhere classified; E44.0 Moderate protein-calorie malnutrition; Z68.1 Body mass index [BMI] 19.9 or less, adult; I12.9 Hypertensive chronic kidney disease with stage 1 through stage 4 chronic kidney disease, or unspecified chronic kidney disease; E78.5 Hyperlipidemia, unspecified; D47.2 Monoclonal gammopathy; M10.9 Gout, unspecified; E11.22 Type 2 diabetes mellitus with diabetic chronic kidney disease; M48.02 Spinal stenosis, cervical region; Z20.822 Contact with and (suspected) exposure to COVID-19; D63.1 Anemia in chronic kidney disease; Y73.2 Prosthetic and other implants, materials and accessory gastroenterology and urology devices associated with adverse incidents; Z85.46 Personal history of malignant neoplasm of prostate; Z86.73 Personal history of transient ischemic attack (TIA), and cerebral infarction without residual deficits; Z86.74 Personal history of sudden cardiac arrest; Z43.6 Encounter for attention to other artificial openings of urinary tract; Z82.49 Family history of ischemic heart disease and other diseases of the circulatory system; Z83.3 Family history of diabetes mellitus; Z87.440 Personal history of urinary (tract) infections
CPT/HCPCS: 36415; 36573; 50431; 50432; 50435; 50693; 50695; 71045; 73620; 74018; 74176; 76937; 80048; 80053; 81003; 82962; 83605; 83735; 84100; 84145; 84153; 84484; 84550; 85025; 87077; 87186; 87426; 93005; 97162; 97530; 99285; C1725; C1729; C1760; C1766; C1769; C2625; C9803; J0330; J1100; J1885; J2185; J2250; J2405; J2543; J2704; J3010; J3370; J3490; J7030; J7042; J7050; J7512; L8514; Q9967; G0103

== ENCOUNTER 2022-08-16 17:23 | Inpatient (IN) | payer OTHER ==
[~2022-08-16] VITALS: Ht 177.8 cm; Wt 81.7 kg
[~2022-08-16 17:23] MED LIST changes: -AMLO10TA80 PO; -INDO50CA99 PO; -METO-539 PO; -VALS1TAB80 PO
[2022-08-16] MEDS ORDERED: SODIUM CHLORIDE 0.9% 1000ML BAG (SEPSIS BOLUS) IV ONE (19:00)
[2022-08-16] MEDS ORDERED: CEFTRIAXONE 1GM PREMIX 50 ML IV ONE (19:00)
[2022-08-16] MEDS ORDERED: CEFTRIAXONE SODIUM 500 MG/VIAL IM ONE (20:15)
[2022-08-16] MEDS ORDERED: AZITHROMYCIN 500 MG in DEXT 5% WATER 250 ML IV SCH (20:15)
[2022-08-16 21:23] LABS: BASOPHILS % 0.7 % (0.0-2.0); EOSINOPHILS % 4.4 % (0.0-5.0); HEMATOCRIT. 35.7 % (42.0-52.0); LYMPHOCYTES % 11.5 % (20.0-50.0); MEAN CORPUSCULAR VOLUME 87.5 fL (80.0-94.0); MEAN PLATELET VOLUME 7.6 fl (7.4-10.4); NEUTROPHILS % 73.4 % (40.0-76.0); PLATELET 254 x1000/uL (130-400); RED BLOOD CELL COUNT 4.08 mill/uL (4.7-6.1); RED CELL DISTRIBUTION WIDTH 18.7 % (11.6-14.6)
[2022-08-16 21:28] LABS: INR 1.2; PROTHROMBIN TIME 12.4 sec (9.6-11.0)
[2022-08-16 21:29] LABS: CHLORIDE 120 mEq/L (98-107)
[2022-08-17] MEDS ORDERED: ACETAMINOPHEN 325MG TABLET PO PRN (08:30)
[2022-08-17] MEDS ORDERED: AZITHROMYCIN 500 MG in DEXT 5% WATER 250 ML IV SCH ×2 (08:30→21:00)
[2022-08-17] MEDS ORDERED: ONDANSETRON HCL 4MG/2ML INJ IV PRN (08:30)
[2022-08-17] MEDS ORDERED: IPRATROPIUM/ALBUTEROL 0.5-3(2.5)MG/3ML NEB HHN PRN (08:45)
[2022-08-17] MEDS: CEFTRIAXONE 1GM PREMIX 50 ML IV SCH (09:52)
[2022-08-17] MEDS: SODIUM CHLORIDE 0.45% 1,000 ML IV SCH (09:53)
[2022-08-17 11:35] VITALS: BP 102/61
[2022-08-17] MEDS ORDERED: IPRATROPIUM/ALBUTEROL 0.5-3(2.5)MG/3ML NEB HHN SCH (12:00)
[2022-08-17 15:55] LABS: CLARITY URINE TURBID (CLEAR); COLOR URINE ORANGE (YELLOW); KETONES URINE NEGATIVE (NEGATIVE); LEUKOCYTE ESTERASE URINE 3+ (NEGATIVE); NITRITE URINE NEGATIVE (NEGATIVE); OCCULT BLOOD URINE 3+ (NEGATIVE); PH URINE 5.5 (4.5-8.0); PROTEIN URINE 3+ (NEGATIVE); SPECIFIC GRAVITY URINE 1.015 (1.005-1.030); UROBILINOGEN URINE 0.2 E.U./dL (0.2-1.0)
[2022-08-17 16:00] VITALS: BP 116/77
[2022-08-17] MEDS ORDERED: ENOXAPARIN 30MG/0.3ML SYR SUBCUT SCH (17:00)
[2022-08-17 20:00] VITALS: BP 107/80
[2022-08-17] MEDS ORDERED: ALBUTEROL (0.083%) 2.5MG/3ML NEB HHN PRN (21:15)
[2022-08-17] MEDS ORDERED: IPRATROPIUM BROMIDE (0.02%) 0.5MG/2.5ML NEB HHN PRN (21:15)
[2022-08-17] MEDS: IPRATROPIUM BROMIDE (0.02%) 0.5MG/2.5ML NEB HHN SCH (21:41)
[2022-08-17] MEDS: ALBUTEROL (0.083%) 2.5MG/3ML NEB HHN SCH (21:41)
[2022-08-18] VITALS (7 sets, daily range): BP systolic 95–120; BP diastolic 71–87
[2022-08-18] MEDS: SODIUM CHLORIDE 0.45% 1,000 ML IV SCH (06:30)
[2022-08-18 06:59] LABS: BASOPHILS % 0.4 % (0.0-2.0); EOSINOPHILS % 3.2 % (0.0-5.0); HEMATOCRIT. 34.8 % (42.0-52.0); HEMOGLOBIN. 11.3 g/dL (14.0-18.0); LYMPHOCYTES % 14.6 % (20.0-50.0); MEAN CORPUSCULAR HEMOGLOBIN 27.4 pg (28.0-32.0); MEAN CORPUSCULAR VOLUME 84.8 fL (80.0-94.0); MEAN PLATELET VOLUME 8.4 fl (7.4-10.4); MONOCYTES % 12.5 % (2.0-8.0); NEUTROPHILS % 69.3 % (40.0-76.0); PLATELET 267 x1000/uL (130-400); RED BLOOD CELL COUNT 4.11 mill/uL (4.7-6.1); RED CELL DISTRIBUTION WIDTH 18.9 % (11.6-14.6)
[2022-08-18] MEDS: CEFTRIAXONE 1GM PREMIX 50 ML IV SCH (09:14)
[2022-08-18] MEDS: ALBUTEROL (0.083%) 2.5MG/3ML NEB HHN SCH ×3 (10:05→20:17)
[2022-08-18] MEDS: IPRATROPIUM BROMIDE (0.02%) 0.5MG/2.5ML NEB HHN SCH ×3 (10:05→20:17)
[2022-08-18] MEDS: CEFEPIME 2,000 MG in DEXT 5% WATER 100 ML IV SCH (14:29)
[2022-08-18] MEDS: DOXYCYCLINE HYCLATE 100MG CAPSULE PO SCH (16:09)
[2022-08-19] VITALS: BP 115/82
[2022-08-19] MEDS: IPRATROPIUM BROMIDE (0.02%) 0.5MG/2.5ML NEB HHN SCH ×4 (01:46→20:08)
[2022-08-19] MEDS: ALBUTEROL (0.083%) 2.5MG/3ML NEB HHN SCH ×4 (01:46→20:09)
[2022-08-19 04:00] VITALS: BP 96/78
[2022-08-19] MEDS: SODIUM CHLORIDE 0.45% 1,000 ML IV SCH (05:44)
[2022-08-19 07:10] LABS: BASOPHILS % 0.7 % (0.0-2.0); EOSINOPHILS % 5.5 % (0.0-5.0); HEMATOCRIT. 31.7 % (42.0-52.0); HEMOGLOBIN. 10.3 g/dL (14.0-18.0); LYMPHOCYTES % 12.6 % (20.0-50.0); MEAN CORPUSCULAR HEMOGLOBIN 27.2 pg (28.0-32.0); MEAN CORPUSCULAR VOLUME 83.7 fL (80.0-94.0); MEAN PLATELET VOLUME 7.9 fl (7.4-10.4); MONOCYTES % 11.5 % (2.0-8.0); NEUTROPHILS % 69.7 % (40.0-76.0); PLATELET 224 x1000/uL (130-400); RED BLOOD CELL COUNT 3.79 mill/uL (4.7-6.1); RED CELL DISTRIBUTION WIDTH 18.9 % (11.6-14.6)
[2022-08-19 07:50] VITALS: BP 122/84
[2022-08-19] MEDS: DOXYCYCLINE HYCLATE 100MG CAPSULE PO SCH ×2 (10:03→16:35)
[2022-08-19 12:06] VITALS: BP 104/74
[2022-08-19] MEDS: CEFEPIME 2,000 MG in DEXT 5% WATER 100 ML IV SCH (13:37)
[2022-08-19 15:28] VITALS: BP 114/85
[2022-08-19] MEDS ORDERED: NALOXONE HCL 0.4MG/ML VIAL IV PRN (16:30)
[2022-08-19] MEDS: TRAMADOL 50MG TABLET PO PRN (16:35)
[2022-08-19 20:00] VITALS: BP 102/75
[2022-08-20] VITALS: BP 107/79
[2022-08-20] MEDS: IPRATROPIUM BROMIDE (0.02%) 0.5MG/2.5ML NEB HHN SCH ×4 (01:45→19:35)
[2022-08-20] MEDS: ALBUTEROL (0.083%) 2.5MG/3ML NEB HHN SCH ×4 (01:46→19:36)
[2022-08-20 04:00] VITALS: BP 114/76
[2022-08-20] MEDS: SODIUM CHLORIDE 0.45% 1,000 ML IV SCH ×2 (05:38→16:18)
[2022-08-20] MEDS: TRAMADOL 50MG TABLET PO PRN (06:13)
[2022-08-20 08:00] VITALS: BP 130/62
[2022-08-20] MEDS: DOXYCYCLINE HYCLATE 100MG CAPSULE PO SCH ×2 (08:30→16:18)
[2022-08-20] MEDS ORDERED: FLUC100T42 MT ×2 (11:19)
[2022-08-20] MEDS ORDERED: CIPR250S3 MT ×2 (11:19)
[2022-08-20 12:00] VITALS: BP 107/77
[2022-08-20] MEDS: CEFEPIME 2,000 MG in DEXT 5% WATER 100 ML IV SCH (13:42)
[2022-08-20 16:00] VITALS: BP 104/75
[2022-08-20 20:00] VITALS: BP 108/78
[2022-08-21] VITALS (7 sets, daily range): BP systolic 108–126; BP diastolic 76–88
[2022-08-21] MEDS: IPRATROPIUM BROMIDE (0.02%) 0.5MG/2.5ML NEB HHN SCH ×4 (02:25→22:03)
[2022-08-21] MEDS: ALBUTEROL (0.083%) 2.5MG/3ML NEB HHN SCH ×4 (02:25→22:03)
[2022-08-21 06:41] LABS: HEMATOCRIT. 33.5 % (42.0-52.0); MEAN CORPUSCULAR HEMOGLOBIN 27.6 pg (28.0-32.0); MEAN CORPUSCULAR VOLUME 84.2 fL (80.0-94.0); MEAN PLATELET VOLUME 8.1 fl (7.4-10.4); PLATELET 208 x1000/uL (130-400); RED BLOOD CELL COUNT 3.98 mill/uL (4.7-6.1); RED CELL DISTRIBUTION WIDTH 19.2 % (11.6-14.6)
[2022-08-21] MEDS: DOXYCYCLINE HYCLATE 100MG CAPSULE PO SCH ×2 (08:41→17:12)
[2022-08-21] MEDS ORDERED: AMOX1TAB15 MT (11:05)
[2022-08-21] MEDS: CEFEPIME 2,000 MG in DEXT 5% WATER 100 ML IV SCH (15:31)
[2022-08-21] MEDS: SODIUM CHLORIDE 0.45% 1,000 ML IV SCH (15:31)
[2022-08-21 18:45] LABS: PLATELET ESTIMATE NORMAL
[2022-08-22 07:08] LABS: HIV SCREEN 4G Non Reactive (Non Reactive)
== END 2022-08-21 21:00 | disposition home or self-care (01) | DRG 871 ==
LOC: ER 17:23 → MICUSO 21:08 → 7WST 08-17 12:42
PROVIDERS: ADMIT Internal Medicine; ATTEND Internal Medicine
PROC: 0W993ZZ Drainage of Right Pleural Cavity, Percutaneous Approach (ICD-10-PCS; principal; 2022-08-19)
DX: A41.9 Sepsis, unspecified organism (principal); E43 Unspecified severe protein-calorie malnutrition; L89.153 Pressure ulcer of sacral region, stage 3; J18.9 Pneumonia, unspecified organism; J96.01 Acute respiratory failure with hypoxia; I13.0 Hypertensive heart and chronic kidney disease with heart failure and stage 1 through stage 4 chronic kidney disease, or unspecified chronic kidney disease; N17.9 Acute kidney failure, unspecified; I69.354 Hemiplegia and hemiparesis following cerebral infarction affecting left non-dominant side; I50.32 Chronic diastolic (congestive) heart failure; N39.0 Urinary tract infection, site not specified; D72.821 Monocytosis (symptomatic); Z20.822 Contact with and (suspected) exposure to COVID-19; E87.5 Hyperkalemia; E11.22 Type 2 diabetes mellitus with diabetic chronic kidney disease; F03.90 Unspecified dementia, unspecified severity, without behavioral disturbance, psychotic disturbance, mood disturbance, and anxiety; I27.20 Pulmonary hypertension, unspecified; I48.91 Unspecified atrial fibrillation; N13.9 Obstructive and reflux uropathy, unspecified; N18.9 Chronic kidney disease, unspecified; N32.9 Bladder disorder, unspecified; G90.8 Other disorders of autonomic nervous system; M10.9 Gout, unspecified; Z85.46 Personal history of malignant neoplasm of prostate; Z86.74 Personal history of sudden cardiac arrest; Z79.4 Long term (current) use of insulin; Z68.25 Body mass index [BMI] 25.0-25.9, adult
CPT/HCPCS: 32555; 36415; 71045; 76604; 80048; 80053; 81003; 82040; 82962; 83605; 83615; 84134; 84145; 84484; 85025; 87106; 87389; 87426; 88108; 93005; 94640; 97161; 99285; A6261; J0456; J0692; J0696; J1650; J7060; A4315

== ENCOUNTER 2022-08-22 08:42 | Inpatient (IN) | payer OTHER ==
[~2022-08-22] VITALS: Ht 172.7 cm; Wt 75.8 kg
[~2022-08-22 08:42] MED LIST changes: +AMOX1TAB15 MT; -PRED10TA PO
[2022-08-22] MEDS ORDERED: METHYLPREDNISOLONE SOD SUCC 40 MG/ML VIAL IV NR (09:15)
[2022-08-22] MEDS ORDERED: IPRATROPIUM/ALBUTEROL 0.5-3(2.5)MG/3ML NEB HHN NR (09:15)
[2022-08-22 09:57] LABS: CHLORIDE 117 mEq/L (98-107)
[2022-08-22 10:01] LABS: BASOPHILS % 0.3 % (0.0-2.0); EOSINOPHILS % 6.3 % (0.0-5.0); HEMATOCRIT. 35.6 % (42.0-52.0); HEMOGLOBIN. 10.6 g/dL (14.0-18.0); LYMPHOCYTES % 12.4 % (20.0-50.0); MEAN CORPUSCULAR HEMOGLOBIN 26.7 pg (28.0-32.0); MEAN CORPUSCULAR VOLUME 89.3 fL (80.0-94.0); MEAN PLATELET VOLUME 7.9 fl (7.4-10.4); PLATELET 197 x1000/uL (130-400); RED BLOOD CELL COUNT 3.98 mill/uL (4.7-6.1); RED CELL DISTRIBUTION WIDTH 19.6 % (11.6-14.6)
[2022-08-22] MEDS ORDERED: CEFTRIAXONE 1GM PREMIX 50 ML IV NR (10:45)
[2022-08-22] MEDS ORDERED: AZITHROMYCIN 500 MG in DEXT 5% WATER 250 ML IV NR (12:00)
[2022-08-22] MEDS ORDERED: ONDANSETRON HCL 4MG/2ML INJ IV PRN (13:30)
[2022-08-22] MEDS ORDERED: CLONIDINE 0.1MG TABLET PO PRN (13:30)
[2022-08-22] MEDS ORDERED: DIPHENHYDRAMINE 50MG/ML VIAL IV PRN (13:30)
[2022-08-22] MEDS ORDERED: IPRATROPIUM/ALBUTEROL 0.5-3(2.5)MG/3ML NEB HHN PRN (13:30)
[2022-08-22] MEDS ORDERED: CEFEPIME 2GM PREMIX 100 ML IV SCH (15:00)
[2022-08-22] MEDS ORDERED: LIDOCAINE HCL/PF 1% 2ML VIAL ONE (15:18)
[2022-08-22] MEDS: CEFEPIME 2,000 MG in DEXT 5% WATER 100 ML IV SCH (15:52)
[2022-08-22] MEDS: LORATADINE 10MG TABLET PO SCH (15:52)
[2022-08-22 16:14] LABS: BG BASE EXCESS -11.2 mmol/L (-2.0-2.0); BG CARBOXYHEMOGLOBIN 0.2 % (0.5-1.5); BG DEOXYHEMOGLOBIN 2.4 % (0.0-5.0); BG FRACTION INSPIRED OXYGEN 28; BG HCO3 ACT 13.3 mmol/L (22.0-26.0); BG METHEMOGLOBIN 0.4 % (0.0-1.5); BG OXYGEN SATURATION 97.6 % (92.0-98.5); BG PH 7.327 (7.350-7.450); BG PO2 104.1 mmHg (75.0-100.0); BG SAMPLE SITE RIGHT RADIAL; BG TOTAL HEMOGLOBIN 10.8 g/dL (12.0-18.0); BG VENT MODE NASAL CANNULA
[2022-08-22 17:22] VITALS: BP 118/80
[2022-08-22 17:26] VITALS: BP 118/80
[2022-08-22] MEDS: MONTELUKAST SODIUM 10MG TABLET PO SCH (18:40)
[2022-08-22] MEDS: DOXYCYCLINE HYCLATE 100MG CAPSULE PO SCH (18:40)
[2022-08-22 20:02] VITALS: BP 126/69
[2022-08-23] VITALS: BP 125/75
[2022-08-23 04:36] VITALS: BP 114/81
[2022-08-23 07:29] LABS: HEMATOCRIT. 31.1 % (42.0-52.0); HEMOGLOBIN. 10.3 g/dL (14.0-18.0); MEAN CORPUSCULAR HEMOGLOBIN 27.4 pg (28.0-32.0); MEAN PLATELET VOLUME 8.3 fl (7.4-10.4); PLATELET 208 x1000/uL (130-400); RED BLOOD CELL COUNT 3.75 mill/uL (4.7-6.1); RED CELL DISTRIBUTION WIDTH 18.7 % (11.6-14.6)
[2022-08-23 07:39] LABS: CHLORIDE 117 mEq/L (98-107)
[2022-08-23 08:06] VITALS: BP 126/79
[2022-08-23] MEDS: LORATADINE 10MG TABLET PO SCH (09:03)
[2022-08-23] MEDS: DOXYCYCLINE HYCLATE 100MG CAPSULE PO SCH ×2 (09:04→17:49)
[2022-08-23 11:58] VITALS: BP 98/56
[2022-08-23] MEDS ORDERED: CEFTRIAXONE 1GM PREMIX 50 ML IV SCH (14:00)
[2022-08-23] MEDS ORDERED: AZITHROMYCIN 500 MG in DEXT 5% WATER 250 ML IV SCH (15:00)
[2022-08-23] MEDS: CEFEPIME 2,000 MG in DEXT 5% WATER 100 ML IV SCH (16:10)
[2022-08-23 16:28] VITALS: BP 117/87
[2022-08-23 17:26] LABS: PLATELET ESTIMATE NORMAL
[2022-08-23] MEDS: IPRATROPIUM BROMIDE (0.02%) 0.5MG/2.5ML NEB HHN SCH ×2 (17:27→17:30)
[2022-08-23] MEDS: ALBUTEROL (0.083%) 2.5MG/3ML NEB HHN SCH (17:28)
[2022-08-23] MEDS: MONTELUKAST SODIUM 10MG TABLET PO SCH (17:49)
[2022-08-23 20:29] VITALS: BP 121/79
[2022-08-24] VITALS: BP 115/79
[2022-08-24 04:31] VITALS: BP 117/75
[2022-08-24 06:24] LABS: HEMATOCRIT. 33.4 % (42.0-52.0); MEAN CORPUSCULAR HEMOGLOBIN 27.2 pg (28.0-32.0); MEAN CORPUSCULAR VOLUME 82.5 fL (80.0-94.0); PLATELET 222 x1000/uL (130-400); RED BLOOD CELL COUNT 4.05 mill/uL (4.7-6.1); RED CELL DISTRIBUTION WIDTH 18.4 % (11.6-14.6)
[2022-08-24 08:00] VITALS: BP 129/86
[2022-08-24] MEDS: ALBUTEROL (0.083%) 2.5MG/3ML NEB HHN SCH (09:15)
[2022-08-24] MEDS: IPRATROPIUM BROMIDE (0.02%) 0.5MG/2.5ML NEB HHN SCH (09:16)
[2022-08-24] MEDS: DOXYCYCLINE HYCLATE 100MG CAPSULE PO SCH ×2 (09:29→17:00)
[2022-08-24] MEDS: LORATADINE 10MG TABLET PO SCH (09:29)
[2022-08-24 10:27] LABS: PLATELET ESTIMATE NORMAL
[2022-08-24 12:00] VITALS: BP 131/91
[2022-08-24] MEDS: CEFEPIME 2,000 MG in DEXT 5% WATER 100 ML IV SCH (15:26)
[2022-08-24 17:25] VITALS: BP 119/64
[2022-08-24 20:00] VITALS: BP 101/81
[2022-08-25] VITALS: BP 125/88
[2022-08-25] MEDS: ALBUTEROL (0.083%) 2.5MG/3ML NEB HHN SCH ×2 (00:05→14:50)
[2022-08-25] MEDS: IPRATROPIUM BROMIDE (0.02%) 0.5MG/2.5ML NEB HHN SCH ×2 (00:05→14:50)
[2022-08-25 04:00] VITALS: BP 120/80
[2022-08-25] MEDS: DOXYCYCLINE HYCLATE 100MG CAPSULE PO SCH ×3 (09:00→17:42)
[2022-08-25] MEDS: CEFEPIME 2,000 MG in DEXT 5% WATER 100 ML IV SCH (15:49)
[2022-08-25 16:00] VITALS: BP 123/82
[2022-08-25 17:30] LABS: BASOPHILS % 0.9 % (0.0-2.0); EOSINOPHILS % 2.6 % (0.0-5.0); HEMATOCRIT. 30.6 % (42.0-52.0); HEMOGLOBIN. 9.9 g/dL (14.0-18.0); LYMPHOCYTES % 7.7 % (20.0-50.0); MEAN CORPUSCULAR HEMOGLOBIN 27.2 pg (28.0-32.0); MEAN CORPUSCULAR VOLUME 84.3 fL (80.0-94.0); MEAN PLATELET VOLUME 7.9 fl (7.4-10.4); MONOCYTES % 12.8 % (2.0-8.0); PLATELET 176 x1000/uL (130-400); RED BLOOD CELL COUNT 3.63 mill/uL (4.7-6.1)
[2022-08-25] MEDS: MEROPENEM-0.9% SODIUM CHLORIDE 50 ML IV SCH (17:42)
[2022-08-25 20:00] VITALS: BP 130/85
[2022-08-25 20:48] LABS: INR 3.6; PROTHROMBIN TIME 35.3 sec (9.6-11.0)
[2022-08-25] MEDS: IPRATROPIUM/ALBUTEROL 0.5-3(2.5)MG/3ML NEB HHN SCH (21:25)
[2022-08-26] VITALS (9 sets, daily range): BP systolic 98–130; BP diastolic 52–84
[2022-08-26] MEDS: MEROPENEM-0.9% SODIUM CHLORIDE 50 ML IV SCH ×2 (05:39→20:21)
[2022-08-26] MEDS: IPRATROPIUM/ALBUTEROL 0.5-3(2.5)MG/3ML NEB HHN SCH ×2 (09:55→17:01)
[2022-08-26] MEDS: DOXYCYCLINE HYCLATE 100MG CAPSULE PO SCH ×2 (10:19→20:41)
[2022-08-26 15:54] LABS: INR 1.3; PROTHROMBIN TIME 13.8 sec (9.6-11.0)
[2022-08-27 00:12] VITALS: BP 101/75
[2022-08-27] MEDS: IPRATROPIUM/ALBUTEROL 0.5-3(2.5)MG/3ML NEB HHN SCH ×2 (01:03→15:37)
[2022-08-27 04:00] VITALS: BP 146/84
[2022-08-27] MEDS ORDERED: MEROPENEM 1000MG in NORMAL SALINE 100ML IV SCH (06:00)
[2022-08-27 08:06] VITALS: BP 105/79
[2022-08-27 08:45] LABS: HEMATOCRIT. 31.4 % (42.0-52.0); HEMOGLOBIN. 10.1 g/dL (14.0-18.0); MEAN CORPUSCULAR VOLUME 83.7 fL (80.0-94.0); PLATELET 170 x1000/uL (130-400); RED BLOOD CELL COUNT 3.75 mill/uL (4.7-6.1); RED CELL DISTRIBUTION WIDTH 19.4 % (11.6-14.6)
[2022-08-27 08:50] LABS: CHLORIDE 120 mEq/L (98-107)
[2022-08-27] MEDS: DOXYCYCLINE HYCLATE 100MG CAPSULE PO SCH ×2 (08:53→16:53)
[2022-08-27] MEDS ORDERED: MEROPENEM-0.9% SODIUM CHLORIDE 50 ML IV SCH ×3 (10:30→18:00)
[2022-08-27 12:30] VITALS: BP 111/61
[2022-08-27] MEDS: NICOTINE 14MG PATCH TD SCH (13:34)
[2022-08-27 16:01] VITALS: BP 115/80
[2022-08-27] MEDS: SODIUM BICARBONATE 650 MG TABLET PO SCH ×2 (16:54→21:09)
[2022-08-27 20:00] VITALS: BP 117/81
[2022-08-27] MEDS: MEROPENEM-0.9% SODIUM CHLORIDE 50 ML IV SCH ×2 (21:00→21:09)
[2022-08-27 21:04] LABS: PLATELET ESTIMATE NORMAL
[2022-08-28] VITALS: BP 136/84
[2022-08-28] MEDS: IPRATROPIUM/ALBUTEROL 0.5-3(2.5)MG/3ML NEB HHN SCH ×3 (00:44→16:30)
[2022-08-28] MEDS: ACETAMINOPHEN 325MG TABLET PO PRN (02:47)
[2022-08-28 04:00] VITALS: BP 101/70
[2022-08-28 06:28] LABS: HEMATOCRIT. 31.4 % (42.0-52.0); HEMOGLOBIN. 10.1 g/dL (14.0-18.0); MEAN CORPUSCULAR HEMOGLOBIN 26.5 pg (28.0-32.0); MEAN CORPUSCULAR VOLUME 82.2 fL (80.0-94.0); MEAN PLATELET VOLUME 8.2 fl (7.4-10.4); PLATELET 173 x1000/uL (130-400); RED BLOOD CELL COUNT 3.82 mill/uL (4.7-6.1); RED CELL DISTRIBUTION WIDTH 19.2 % (11.6-14.6)
[2022-08-28] MEDS ORDERED: NALOXONE HCL 0.4MG/ML VIAL IV PRN (07:00)
[2022-08-28 07:34] LABS: CHLORIDE 119 mEq/L (98-107)
[2022-08-28] MEDS: SODIUM BICARBONATE 650 MG TABLET PO SCH ×2 (08:23→21:51)
[2022-08-28] MEDS: NICOTINE 14MG PATCH TD SCH (08:23)
[2022-08-28] MEDS: DOXYCYCLINE HYCLATE 100MG CAPSULE PO SCH ×2 (08:24→17:16)
[2022-08-28] MEDS: MEROPENEM-0.9% SODIUM CHLORIDE 50 ML IV SCH ×2 (08:24→21:51)
[2022-08-28 08:30] VITALS: BP 101/69
[2022-08-28] MEDS ORDERED: BENZONATATE 100MG CAPSULE PO PRN (09:30)
[2022-08-28] MEDS: HYDROCODONE/ACETAMINOPHEN 5/325MG TABLET PO PRN (11:35)
[2022-08-28 12:06] VITALS: BP 104/62
[2022-08-28 16:00] VITALS: BP 96/61
[2022-08-28] MEDS ORDERED: MAGNESIUM 2 G PREMIX 50 ML IV NR (16:30)
[2022-08-28] MEDS: SODIUM CHLORIDE 0.9% 1,000 ML IV SCH (17:15)
[2022-08-28 20:00] VITALS: BP 115/77
[2022-08-28 21:21] LABS: PLATELET ESTIMATE NORMAL
[2022-08-29] VITALS: BP 116/84
[2022-08-29] MEDS: IPRATROPIUM/ALBUTEROL 0.5-3(2.5)MG/3ML NEB HHN SCH ×3 (00:55→16:03)
[2022-08-29] MEDS: MEROPENEM-0.9% SODIUM CHLORIDE 50 ML IV SCH ×2 (08:56→21:18)
[2022-08-29] MEDS: NICOTINE 14MG PATCH TD SCH (09:00)
[2022-08-29] MEDS: DOXYCYCLINE HYCLATE 100MG CAPSULE PO SCH ×2 (09:01→17:10)
[2022-08-29] MEDS: SODIUM BICARBONATE 650 MG TABLET PO SCH ×2 (09:01→21:18)
[2022-08-29 12:00] VITALS: BP 142/66
[2022-08-29] MEDS: HYDROCODONE/ACETAMINOPHEN 5/325MG TABLET PO PRN (14:01)
[2022-08-29 16:10] VITALS: BP 146/74
[2022-08-29 16:20] VITALS: BP 146/74
[2022-08-29] MEDS: SODIUM CHLORIDE 0.9% 1,000 ML IV SCH (17:14)
[2022-08-29 20:00] VITALS: BP 98/42
[2022-08-30] VITALS: BP 135/98
[2022-08-30] MEDS: IPRATROPIUM/ALBUTEROL 0.5-3(2.5)MG/3ML NEB HHN SCH ×4 (00:51→21:11)
[2022-08-30] MEDS: SODIUM BICARBONATE 650 MG TABLET PO SCH ×3 (01:56→19:04)
[2022-08-30 04:00] VITALS: BP 133/98
[2022-08-30] MEDS: HYDROCODONE/ACETAMINOPHEN 5/325MG TABLET PO PRN (04:26)
[2022-08-30 08:00] VITALS: BP 101/68
[2022-08-30] MEDS: MEROPENEM-0.9% SODIUM CHLORIDE 50 ML IV SCH ×2 (08:51→20:34)
[2022-08-30] MEDS: NICOTINE 14MG PATCH TD SCH (08:51)
[2022-08-30 12:05] VITALS: BP 114/82
[2022-08-30] MEDS: SODIUM CHLORIDE 0.9% 1,000 ML IV SCH (15:26)
[2022-08-30 16:00] VITALS: BP 132/82
[2022-08-30 16:25] LABS: BASOPHILS % 0.9 % (0.0-2.0); EOSINOPHILS % 3.3 % (0.0-5.0); HEMATOCRIT. 37.1 % (42.0-52.0); HEMOGLOBIN. 11.9 g/dL (14.0-18.0); LYMPHOCYTES % 11.6 % (20.0-50.0); MEAN CORPUSCULAR HEMOGLOBIN 26.9 pg (28.0-32.0); MEAN CORPUSCULAR VOLUME 83.8 fL (80.0-94.0); MEAN PLATELET VOLUME 8.4 fl (7.4-10.4); MONOCYTES % 13.1 % (2.0-8.0); NEUTROPHILS % 71.1 % (40.0-76.0); PLATELET 198 x1000/uL (130-400); RED BLOOD CELL COUNT 4.42 mill/uL (4.7-6.1); RED CELL DISTRIBUTION WIDTH 19.5 % (11.6-14.6)
[2022-08-30 16:44] LABS: PHOSPHORUS 3.8 mg/dL (2.5-4.9)
[2022-08-30 20:00] VITALS: BP 113/80
[2022-08-31] VITALS: BP 119/79
[2022-08-31 04:00] VITALS: BP 104/72
[2022-08-31] MEDS: SODIUM BICARBONATE 650 MG TABLET PO SCH ×3 (05:12→21:47)
[2022-08-31 08:00] VITALS: BP 130/77
[2022-08-31] MEDS: NICOTINE 14MG PATCH TD SCH (08:10)
[2022-08-31] MEDS: MEROPENEM 500 MG in SODIUM CHLORIDE 0.9% 50 ML IV SCH ×2 (08:12→20:53)
[2022-08-31 12:00] VITALS: BP 134/90
[2022-08-31 16:00] VITALS: BP 129/89
[2022-08-31 16:35] LABS: BASOPHILS % 0.4 % (0.0-2.0); EOSINOPHILS % 2.9 % (0.0-5.0); LYMPHOCYTES % 10.7 % (20.0-50.0); MEAN CORPUSCULAR HEMOGLOBIN 26.5 pg (28.0-32.0); MEAN CORPUSCULAR VOLUME 82.1 fL (80.0-94.0); MEAN PLATELET VOLUME 8.2 fl (7.4-10.4); MONOCYTES % 12.4 % (2.0-8.0); NEUTROPHILS % 73.6 % (40.0-76.0); PLATELET 180 x1000/uL (130-400); RED BLOOD CELL COUNT 4.14 mill/uL (4.7-6.1); RED CELL DISTRIBUTION WIDTH 19.1 % (11.6-14.6)
[2022-08-31 16:50] LABS: CHLORIDE 121 mEq/L (98-107)
[2022-08-31 16:59] LABS: PHOSPHORUS 3.4 mg/dL (2.5-4.9)
[2022-08-31] MEDS: HYDROCODONE/ACETAMINOPHEN 5/325MG TABLET PO PRN (18:20)
[2022-08-31 20:00] VITALS: BP 116/84
[2022-09-01] VITALS: BP 119/82
[2022-09-01 04:00] VITALS: BP 114/84
[2022-09-01] MEDS: SODIUM BICARBONATE 650 MG TABLET PO SCH ×3 (05:13→21:37)
[2022-09-01 08:00] VITALS: BP 128/90
[2022-09-01] MEDS: NICOTINE 14MG PATCH TD SCH (09:00)
[2022-09-01] MEDS: MEROPENEM 500 MG in SODIUM CHLORIDE 0.9% 50 ML IV SCH ×3 (09:00→20:51)
[2022-09-01] MEDS: HYDROCODONE/ACETAMINOPHEN 5/325MG TABLET PO PRN (09:25)
[2022-09-01] MEDS ORDERED: IPRATROPIUM/ALBUTEROL 0.5-3(2.5)MG/3ML NEB HHN PRN (12:45)
[2022-09-01 16:00] VITALS: BP 118/81
[2022-09-01 20:17] VITALS: BP 102/77
[2022-09-02] VITALS: BP 121/85
[2022-09-02 04:00] VITALS: BP 124/82
[2022-09-02] MEDS: SODIUM BICARBONATE 650 MG TABLET PO SCH ×3 (05:30→21:17)
[2022-09-02 08:00] VITALS: BP 117/86
[2022-09-02] MEDS: MEROPENEM 500 MG in SODIUM CHLORIDE 0.9% 50 ML IV SCH ×2 (08:05→21:00)
[2022-09-02 12:00] VITALS: BP 132/87
[2022-09-02] MEDS ORDERED: ASPI-1406 MT (14:11)
[2022-09-02] MEDS ORDERED: SILD100T69 MT (14:11)
[2022-09-02] MEDS ORDERED: LINA5TAB MT (14:11)
[2022-09-02 16:00] VITALS: BP 158/69
[2022-09-02 20:00] VITALS: BP 144/72
[2022-09-02] MEDS: ACETAMINOPHEN 325MG TABLET PO PRN (21:29)
[2022-09-03] VITALS: BP 119/82
[2022-09-03 04:00] VITALS: BP 117/79
[2022-09-03] MEDS: SODIUM BICARBONATE 650 MG TABLET PO SCH ×2 (06:07→13:04)
[2022-09-03 08:00] VITALS: BP 116/83
[2022-09-03 12:00] VITALS: BP 118/84
[2022-09-03 14:14] VITALS: BP 118/84
[2022-09-03 16:00] VITALS: BP 140/70
== END 2022-09-03 18:16 | disposition home health service (06) | DRG 871 ==
LOC: ER 08:42 → 7WST 12:31 → EDBEDREQ 12:37 → EDBEDREQSVC 12:37 → EDBEDREQTM 12:37
PROVIDERS: ADMIT Internal Medicine; ATTEND Internal Medicine
PROC: 30233K1 Transfusion of Nonautologous Frozen Plasma into Peripheral Vein, Percutaneous Approach (ICD-10-PCS; principal; 2022-08-26)
PROC: 0W9930Z Drainage of Right Pleural Cavity with Drainage Device, Percutaneous Approach (ICD-10-PCS; 2022-08-27)
DX: A41.9 Sepsis, unspecified organism (principal); E43 Unspecified severe protein-calorie malnutrition; J96.01 Acute respiratory failure with hypoxia; G92.9 Unspecified toxic encephalopathy; J18.1 Lobar pneumonia, unspecified organism; E87.20 Acidosis, unspecified; I13.0 Hypertensive heart and chronic kidney disease with heart failure and stage 1 through stage 4 chronic kidney disease, or unspecified chronic kidney disease; I50.30 Unspecified diastolic (congestive) heart failure; N39.0 Urinary tract infection, site not specified; N18.4 Chronic kidney disease, stage 4 (severe); N13.8 Other obstructive and reflux uropathy; D68.9 Coagulation defect, unspecified; J91.8 Pleural effusion in other conditions classified elsewhere; J98.19 Other pulmonary collapse; E11.22 Type 2 diabetes mellitus with diabetic chronic kidney disease; I27.20 Pulmonary hypertension, unspecified; C61 Malignant neoplasm of prostate; F03.90 Unspecified dementia, unspecified severity, without behavioral disturbance, psychotic disturbance, mood disturbance, and anxiety; R65.20 Severe sepsis without septic shock; Z20.822 Contact with and (suspected) exposure to COVID-19; I25.10 Atherosclerotic heart disease of native coronary artery without angina pectoris; D47.2 Monoclonal gammopathy; N40.0 Benign prostatic hyperplasia without lower urinary tract symptoms; D72.10 Eosinophilia, unspecified; I48.91 Unspecified atrial fibrillation; N32.9 Bladder disorder, unspecified; D72.819 Decreased white blood cell count, unspecified; M48.02 Spinal stenosis, cervical region; M10.9 Gout, unspecified; E78.5 Hyperlipidemia, unspecified; Z68.25 Body mass index [BMI] 25.0-25.9, adult; Z95.0 Presence of cardiac pacemaker; Z86.74 Personal history of sudden cardiac arrest; Z86.73 Personal history of transient ischemic attack (TIA), and cerebral infarction without residual deficits; Z85.46 Personal history of malignant neoplasm of prostate; Z82.49 Family history of ischemic heart disease and other diseases of the circulatory system; Z79.84 Long term (current) use of oral hypoglycemic drugs
CPT/HCPCS: 32555; 36415; 36600; 71045; 71250; 80048; 80053; 82140; 82375; 82805; 83605; 83735; 83880; 84100; 84145; 84484; 85025; 86850; 86900; 86927; 87426; 93005; 93970; 93971; 94640; 97162; 97166; 97530; 99285; A6261; C1893; C9803; J0456; J0692; J2185; J3475; J3490; J7030; J7060; P9017

== ENCOUNTER 2022-11-15 09:38 | Emergency (ER) | payer OTHER ==
[~2022-11-15] VITALS: Ht 182.9 cm; Wt 91.0 kg
[~2022-11-15 09:38] MED LIST changes: +ALLO100T PO; -AMOX1TAB15 MT; +ATOR20TA65 PO; +CEFD300C3 MT; +DOXY100C5 PO; +FURO40TA5 MT; +HYDR-4001 MT; +REV20 MT; -SILD100T69 PO; +TAMS-11 PO
[2022-11-15 09:42] VITALS: O2SAT 96
[2022-11-15] MEDS ORDERED: SODIUM CHLORIDE 0.9% 1000ML BAG (SEPSIS BOLUS) IV ONE (10:30)
[2022-11-15] MEDS ORDERED: AZITHROMYCIN 500 MG in DEXT 5% WATER 250 ML IV SCH (10:45)
[2022-11-15] MEDS ORDERED: CEFTRIAXONE 1GM PREMIX 50 ML IV NR (10:45)
[2022-11-15] MEDS ORDERED: AZITHROMYCIN 500MG/250ML 250 ML IV NR (11:00)
[2022-11-15 11:43] LABS: BASOPHILS % 0.4 % (0.0-2.0); EOSINOPHILS % 3.3 % (0.0-5.0); HEMATOCRIT. 31.2 % (42.0-52.0); LYMPHOCYTES % 10.8 % (20.0-50.0); MEAN CORPUSCULAR HEMOGLOBIN 26.6 pg (28.0-32.0); MEAN CORPUSCULAR VOLUME 83.3 fL (80.0-94.0); MEAN PLATELET VOLUME 7.6 fl (7.4-10.4); MONOCYTES % 14.8 % (2.0-8.0); NEUTROPHILS % 70.7 % (40.0-76.0); PLATELET 206 x1000/uL (130-400); RED BLOOD CELL COUNT 3.75 mill/uL (4.7-6.1); RED CELL DISTRIBUTION WIDTH 20.6 % (11.6-14.6)
[2022-11-15 11:47] LABS: CHLORIDE 115 mEq/L (98-107)
[2022-11-15 11:48] LABS: INR 1.2
[2022-11-15 13:57] LABS: CLARITY URINE TURBID (CLEAR); COLOR URINE YELLOW (YELLOW); KETONES URINE NEGATIVE (NEGATIVE); LEUKOCYTE ESTERASE URINE 3+ (NEGATIVE); NITRITE URINE NEGATIVE (NEGATIVE); OCCULT BLOOD URINE 3+ (NEGATIVE); PH URINE 5.5 (4.5-8.0); PROTEIN URINE 3+ (NEGATIVE); SPECIFIC GRAVITY URINE 1.012 (1.005-1.030); UROBILINOGEN URINE 0.2 E.U./dL (0.2-1.0)
[2022-11-15 16:26] VITALS: BP 133/95; PULSE 98; RESP 19; TEMP 98.4
== END 2022-11-15 16:45 | disposition short-term general hospital (02) ==
LOC: ER 09:57 → CANBEDREQ 13:14 → ER 16:45
DX: N39.0 Urinary tract infection, site not specified (principal); I11.0 Hypertensive heart disease with heart failure; I50.9 Heart failure, unspecified; N28.9 Disorder of kidney and ureter, unspecified; D72.819 Decreased white blood cell count, unspecified; J90 Pleural effusion, not elsewhere classified; I48.91 Unspecified atrial fibrillation; F03.90 Unspecified dementia, unspecified severity, without behavioral disturbance, psychotic disturbance, mood disturbance, and anxiety; E11.9 Type 2 diabetes mellitus without complications; I10 Essential (primary) hypertension
CPT/HCPCS: 99285; 96365; 71045; 96375; 80053; 81003; 83880; 83605; 85025; 85610; 87040; 87086; 87186; 84484; 36415; 84145; 93005; J0456; J0696; J7030